=== PATIENT | female | born 1960 | race Caucasian/White ===

== ENCOUNTER 2018-07-08 22:29 | Emergency (ER) | payer OTHER ==
--- NOTE | 2018-07-08 22:41 | PDOC ---
Attending Attestation - HPI HPI: 07/08/18 23:59 The patient is a 57 year old female, with a significant past medical history of advanced ovarian cancer, abdominal surgery November 2017, s/p (last chemo 04/11/18 ) and is now taking pill medication (doesn't know the name) 2 times a day, who presents to the emergency department with onset pleuritic chest pain since 7 :00pm tonight accompanied with dry cough and white flem. The patient notes she was at home with her daughter and had this pulling sensation in the middle of her chest that is aggravated with inspiration. Patient states she feels better now but can still feel the pulling sensation. The patient denies shortness of breath, headache or dizziness. The patient denies fever, chills, nausea, vomit, diarrhea or constipation. The patient denies dysuria, frequency, urgency and hematuria. Allergies: NKDA Past surgical history: abdominal surgery November 2017 Social history: None reported PCP: NOT ON STAFF - Physicial Exam PE: 07/08/18 23:59 GENERAL: Awake, alert, and fully oriented, in no acute distress HEAD: No signs of trauma EYES: PERRLA, EOMI, sclera anicteric, conjunctiva clear ENT: Auricles normal inspection, hearing grossly normal, nares patent, oropharynx clear without exudates. Moist mucosa NECK: Normal ROM, supple, no lymphadenopathy, JVD, or masses LUNGS: Breath sounds equal, clear to auscultation bilaterally. No wheezes, and no crackles HEART: Regular rate and rhythm, normal S1 and S2, no murmurs, rubs or gallops ABDOMEN:(+) surgical incision on abdomen. Soft, nontender, normoactive bowel sounds. No guarding, no rebound. No masses EXTREMITIES: Normal range of motion, no edema. No clubbing or cyanosis. No cords, erythema, or tenderness NEUROLOGICAL: Cranial nerves II through XII grossly intact. Normal speech, normal gait SKIN: Warm, Dry, normal turgor, no rashes or lesions noted. <Kim Malloy - Last Filed: 07/08/18 23:59> - Resident Resident Name: Kassi Land - ED Attending Attestation I have performed the following: I have examined & evaluated the patient, The case was reviewed & discussed with the resident, I agree w/resident's findings & plan - Medical Decision Making 07/09/18 00:18 Pt has normal HR and breathing easily; speaking in full sentences. No peripheral edema or ext swelling. Pt has normal CXR; awaiting CT chest to r/o PE. 07/09/18 01:13 D-dimer is 2009; she will be sent for a CTA chest. 07/09/18 04:07 Patient Name: RUBIN MOREJON THIS IS A PRELIMINARY REPORT FROM [facility] DATE OF SERVICE: 2018-07-09 03:00:22 IMAGES: 415 EXAM: CTA CHEST No pulmonary embolism. No aortic dissection or aneurysm. No pneumonia or pleural effusions. Right chest infusion port, tip in upper right atrium. Portion of liver dome probably projecting slightly through small right hemidiaphragm eventration. Small possible hepatic cyst. Trace perihepatic ascites. 07/09/18 04:30 Pt will go [facility] and follow with docs. She was reassured and she is feeling better. <Cora Jackman - Last Filed: 07/09/18 04:30> Attestations - Attestations 07/09/18 00:00 Documentation prepared by Kim Malloy, acting as medical coder for Cora Jackman MD <Kim Malloy - Last Filed: 07/08/18 23:59>
[2018-07-08 23:09] LABS: BASO % 0.6 % (0-2.0); EOS % 5.5 % (0-4.5); HEMATOCRIT 33.7 % (32.4-45.2); HEMOGLOBIN 11.7 GM/dL (10.7-15.3); LYMPH % 24.3 % (8-40); MCH 28.7 pg (25.7-33.7); MCHC 34.6 g/dl (32.0-36.0); MEAN CELL VOLUME 82.8 fl (80-96); MEAN PLT VOLUME 8.6 fl (7.5-11.1); MONO % 7.4 % (3.8-10.2); NEUT % 62.2 % (42.8-82.8); PLATELET COUNT 215 K/MM3 (134-434); RBC 4.08 M/mm3 (3.60-5.2); RDW 14.3 % (11.6-15.6); WHITE BLOOD COUNT 5.3 K/mm3 (4.0-10.0)
--- NOTE | 2018-07-08 23:17 | PDOC ---
History of Present Illness - General Chief Complaint: Chest Pain Stated Complaint: CHEST PAIN Time Seen by Provider: 07/08/18 22:35 History Source: Patient Exam Limitations: No Limitations - History of Present Illness Initial Comments: 07/08/18 23:13 Pt is a 57yo F with PMH of Advanced Ovarian Ca s/p abdominal surgery November 2017, s/p chemo (last session 04/11/2018) is now taking medications BID x1 week so far presenting to ED with sudden onset chest pain that happened around 4 hours ago. Pt states she was at home and had this pulling type of pain in the middle of her chest worsened by inspiration. She worried and came to the emergency room. Pt states that she feels better now but still has the pulling sensation. Endorses dry cough. She denies SOB, hemoptysis, palpitations, swelling/pain in legs, abdominal pain, n/v/d, fevers, chills, lightheadedness. PMD: none Onc: Rene PMH: see hpi PSH: see hpi Meds: see med rec Allergies: nkda Social: denies Past History - Past Medical History Allergies/Adverse Reactions: Allergies Allergy/AdvReac Type Severity Reaction Status Date / Time No Known Allergies Allergy Verified 07/09/18 03:47 Home Medications: Ambulatory Orders No Home Medications 0 dose .ROUTE UTDICT 06/07/12 - Suicide/Smoking/Psychosocial Hx Smoking Status: Yes Smoking History: Current some day smoker Number of Cigarettes Smoked Daily: 2 Review of Systems - Review of Systems Constitutional: No: Chills, Fever, Night Sweats HEENTM: No: Symptoms Reported Respiratory: No: Cough, Shortness of Breath, Hemoptysis Cardiac (ROS): Yes: Chest Pain. No: Lightheadedness, Palpitations, Syncope ABD/GI: No: Symptoms Reported : No: Symptoms Reported Musculoskeletal: No: Symptoms Reported Integumentary: No: Symptoms Reported Neurological: No: Symptoms reported *Physical Exam - Physical Exam General Appearance: Yes: Nourished, Appropriately Dressed. No: Apparent Distress HEENT: positive: EOMI, JOSEPHINE Neck: positive: Trachea midline, Supple. negative: Lymphadenopathy (R), Lymphadenopathy (L) Respiratory/Chest: positive: Lungs Clear, Normal Breath Sounds. negative: Crackles, Rales, Rhonchi, Stridor, Wheezing Cardiovascular: positive: Regular Rhythm, Regular Rate, S1, S2. negative: Edema , JVD, Murmur Vascular Pulses: Carotid (R): 2+, Carotid (L): 2+, Dorsalis-Pedis (R): 2+, Doralis-Pedis (L): 2+ Gastrointestinal/Abdominal: positive: Normal Bowel Sounds, Soft, Other (healed surgical incision). negative: Rebound, Tenderness, Mass Musculoskeletal: negative: CVA Tenderness Extremity: positive: Normal Capillary Refill, Pelvis Stable. negative: Swelling , Calf Tenderness Integumentary: positive: Normal Color, Dry, Warm Neurologic: positive: brick layer II-XII NML intact, Fully Oriented, Alert, Normal Mood/ Affect, Normal Response, Motor Strength 10/01 ED Treatment Course - LABORATORY CBC & Chemistry Diagram: 07/08/18 23:00 07/08/18 23:00 - ADDITIONAL ORDERS Additional order review: 07/08/18 23:00 RBC 4.08 MCV 82.8 MCHC 34.6 RDW 14.3 MPV 8.6 Neutrophils % 62.2 Lymphocytes % 24.3 Monocytes % 7.4 Eosinophils % 5.5 H Basophils % 0.6 - RADIOLOGY Radiology Studies Ordered: Category Date Time Status CHEST CTA [CT] Stat CT Scan 07/08/18 23:03 Ordered CHEST PA & LAT [RAD] Stat Radiology 07/08/18 22:36 Ordered Medical Decision Making - Medical Decision Making 07/08/18 23:16 Pt is a 57yo F with PMH of Advanced Ovarian Ca s/p abdominal surgery November 2017, s/p chemo (last session 04/11/2018) is now taking medications BID x1 week so far presenting to ED with sudden onset chest pain that happened around 4 hours ago. Pt states she was at home and had this pulling type of pain in the middle of her chest worsened by inspiration. She worried and came to the emergency room. Pt states that she feels better now but still has the pulling sensation. Endorses dry cough. She denies SOB, hemoptysis, palpitations, swelling/pain in legs, abdominal pain, n/v/d, fevers, chills, lightheadedness. Vitals: wnl, saturating well on RA. Not tachycardic PE: benign Ddx includes but not limited to acs, pe, ptx, pna, carditis considering PE although Wells score 1-4. pain is pleuritic. -chest pain workup, cxr, ekg. -d-dimer sent -pt in pain. Given IV Tylenol Labs wnl. D-dimer 2000. Will do CTA. 07/09/18 04:21 CTA negative for PE. PT is hemodynamically stable, not having NM or PE or PNA. Has follow up, Will dc home. given return precautions. Will give 625mg Tylenol PO. *DC/Admit/Observation/Transfer Diagnosis at time of Disposition: Chest pain Qualifiers: Chest pain type: unspecified Qualified Code(s): R07.9 - Chest pain, unspecified - Discharge Dispostion Disposition: HOME Condition at time of disposition: Improved Decision to Admit order: No - Referrals Referrals: ON STAFF,NOT [Primary Care Provider] - - Patient Instructions Printed Discharge Instructions: DI for Atypical Chest Pain Additional Instructions: You were seen in the emergency room for chest pain. All the blood work was normal and the CT of the chest was normal. You do not have a clot in your lungs. Please keep your appointment with your doctor. If you need a primary care doctor , you can use the pamphlet provided to you. Please try to establish a primary care doctor. You can take Tylenol or ibuprofen for the pain as needed. Come back to the emergency room if pain gets worse, you have difficulty breathing, you cough up blood or if any new concerning symptom develops. Thank you - Post Discharge Activity
[2018-07-08 23:22] LABS: INR 1.03 (0.83-1.09); PROTHROMBIN TIME (PATIENT) 12.1 SEC (9.7-13.0)
[2018-07-09 00:11] LABS: ALBUMIN 3.3 g/dl (3.4-5.0); ALK PHOS 97 U/L (45-117); ANION GAP 8 MMOL/L (8-16); BILIRUBIN,TOTAL 0.2 mg/dL (0.2-1); BLOOD UREA NITROGEN 21 mg/dL (7-18); CALCIUM 8.2 mg/dL (8.5-10.1); CHLORIDE 104 mmol/L (98-107); CO2 26 mmol/L (21-32); CREATININE 1.1 mg/dL (0.55-1.3); GLUCOSE,RANDOM 134 mg/dL (74-106); MAGNESIUM 1.8 mg/dL (1.8-2.4); SGOT/AST 15 U/L (15-37); SGPT/ALT 19 U/L (13-61); SODIUM 138 mmol/L (136-145)
[2018-07-09] MEDS ORDERED: SODIUM CHLORIDE 1,000 ML IV STA (01:21)
[2018-07-09] MEDS ORDERED: ACETAMINOPHEN INJECTION 100 ML IVPB ONE (01:50)
[2018-07-09] MEDS ORDERED: ACETAMINOPHEN 1000 MG/100 ML VIAL (NON FORMULARY) IVPB ONE (01:50)
[2018-07-09 03:48] VITALS: BMI 32.3
[2018-07-09] MEDS ORDERED: ACETAMINOPHEN 325 MG TABLET (FP) ONE (04:20)
[2018-07-09] MEDS ORDERED: ACETAMINOPHEN 325 MG TABLET (FP) PO ONE (04:20)
[2018-07-09 04:26] VITALS: BP 136/78; PULSE 88; TEMP 98.6
--- NOTE | 2018-07-09 09:27 | EKG ---
Test Reason : Blood Pressure : / mmHG Vent. Rate : 065 BPM Atrial Rate : 065 BPM P-R Int : 164 ms QRS Dur : 074 ms QT Int : 404 ms P-R-T Axes : 069 054 058 degrees QTc Int : 420 ms NORMAL SINUS RHYTHM POSSIBLE LEFT ATRIAL ENLARGEMENT BORDERLINE ECG NO PREVIOUS ECGS AVAILABLE Confirmed by Giovani Joseph MD ([id number]) on 07/09/2018 9:27:14 AM Referred By: Confirmed By:Giovani Joseph MD
== END 2018-07-09 04:25 | disposition home or self-care (01) ==
LOC: JER 22:29
PROC: 3E0337Z Introduction of Electrolytic and Water Balance Substance into Peripheral Vein, Percutaneous Approach (ICD-10-PCS; principal; 2018-07-08)
PROC: 3E033NZ Introduction of Analgesics, Hypnotics, Sedatives into Peripheral Vein, Percutaneous Approach (ICD-10-PCS; 2018-07-08)
DX: R07.9 Chest pain, unspecified (principal); Z85.43 Personal history of malignant neoplasm of ovary
CPT/HCPCS: 36415; 71046-TC-FY; 71275-TC; 80053; 82550; 83735; 84484; 85025; 85379; 85610; 93005; 93010; 96361; 96374; 99283-25; J0131; J7030

== ENCOUNTER 2018-07-18 21:43 | Emergency (ER) | payer OTHER ==
[2018-07-18 21:55] VITALS: TEMP 98.4; BMI 30.2
--- NOTE | 2018-07-18 21:57 | PDOC ---
History of Present Illness - General Chief Complaint: Blood Pressure Problem Stated Complaint: HYPERTENSION Time Seen by Provider: 07/18/18 21:56 History Source: Patient - History of Present Illness Initial Comments: 07/18/18 22:08 The patient is a 57 year old female with a PMH of Ovarian Ca (s/p hysterectomy, currently on infusion chemo - last appointment 07/01/18) presents with elevated BP readings at home SBP 160's B/L. States she came home from work, ate some [place] food and then started to feel a little bit "foggy" (no headache, no blurry vision) so she measured her BP and became concerned with the high readings prompting her visit to the ED. NKDA Surgical: hysterectomy Social: denies toxic habits PMD: None Oncologist: Dr. Riddle, [facility] As per EMR, patient last evaluated in our ED earlier this month for chest pain at which time CTA was negative for PE. Past History - Past Medical History Allergies/Adverse Reactions: Allergies Allergy/AdvReac Type Severity Reaction Status Date / Time No Known Allergies Allergy Verified 07/09/18 03:47 Home Medications: Ambulatory Orders Lenvatinib Mesylate [Lenvima] 40 mg PO DAILY 07/18/18 Hydrochlorothiazide 25 mg PO DAILY #7 tablet 07/19/18 COPD: No - Suicide/Smoking/Psychosocial Hx Smoking Status: Yes Smoking History: Unknown if ever smoked Have you smoked in the past 12 months: No Number of Cigarettes Smoked Daily: 2 Hx Alcohol Use: No Drug/Substance Use Hx: No Review of Systems - Review of Systems Constitutional: No: Chills, Fever HEENTM: No: Recent change in vision Respiratory: No: Cough, Shortness of Breath Cardiac (ROS): No: Chest Pain, Lightheadedness, Palpitations, Syncope ABD/GI: No: Constipated, Diarrhea, Nausea, Vomiting *Physical Exam - Vital Signs Last Vital Signs Temp Pulse Resp BP Pulse Ox 98.4 F 84 18 173/115 H 97 07/18/18 21:50 07/18/18 21:50 07/18/18 21:50 07/18/18 21:50 07/18/18 21:50 - Physical Exam General Appearance: Yes: Nourished, Appropriately Dressed HEENT: positive: Normal Voice, Hearing Grossly Normal Neck: positive: Trachea midline, Supple Respiratory/Chest: positive: Lungs Clear, Normal Breath Sounds Cardiovascular: positive: S1, S2. negative: Edema, JVD, Murmur Vascular Pulses: Dorsalis-Pedis (R): 2+, Doralis-Pedis (L): 2+ Gastrointestinal/Abdominal: positive: Normal Bowel Sounds, Soft Extremity: positive: Normal Capillary Refill, Normal Inspection Integumentary: positive: Normal Color, Dry, Warm Moderate Sedation - Procedure Monitoring Vital Signs: Procedure Monitoring Vital Signs Temperature 98.4 F 07/18/18 21:50 Pulse Rate 84 07/18/18 21:50 Respiratory Rate 18 07/18/18 21:50 Blood Pressure 173/115 H 07/18/18 21:50 O2 Sat by Pulse Oximetry (%) 97 07/18/18 21:50 ED Treatment Course - LABORATORY CBC & Chemistry Diagram: 07/19/18 00:05 07/19/18 00:05 Medical Decision Making - Medical Decision Making 07/18/18 22:13 57 year old female with elevated BP and "fogginess." H/o elevated BP and salt loading this evening. Repeat BP @ bedside, 171/99. Given patient's h/o intermittent elevated BP and hypercoaguability 2/2 to malignancy will evaluate for CVA/TIA. 07/19/18 01:49 CBC, CMP unremarkable Repeat BP 175/92 07/19/18 03:00 Repeat BP 167/101 07/19/18 04:[address] negative Repeat BP 154/80 Will discharge patient home with referral to establish Primary Care, return precautions. Clinical Impression: Hypertension 2/2 to salt loading I discussed the physical exam findings, ancillary test results and final diagnoses with the patient. I answered all of the patient's questions. The patient was satisfied with the care received and felt comfortable with the discharge plan and treatment plan. The patient will return to the Emergency Department with any new, persistent or worsening symptoms. *DC/Admit/Observation/Transfer Diagnosis at time of Disposition: High blood pressure - Discharge Dispostion Disposition: HOME Condition at time of disposition: Good Decision to Admit order: No - Prescriptions Prescriptions: Hydrochlorothiazide 25 mg PO DAILY #7 tablet - Referrals Referrals: Deon Nicholson MD [Staff Physician] - - Patient Instructions Printed Discharge Instructions: DI for High Blood Pressure Additional Instructions: You were evaluated today for your high blood pressure and headache. All of your labs and a cat scan of your head showed no concerning findings. At this time you are safe for discharge home. We have sent a 1 week supply of a blood pressure medication to your pharmacy. Please take as prescribed. We have scheduled a primary care appointment for you on Tuesday at 4 p.m. with the [facility] ([address] [place] [address]). Your care is not complete until you are evaluated by a primary care physician. - Post Discharge Activity
--- NOTE | 2018-07-18 22:00 | PDOC ---
Attending Attestation - HPI HPI: 07/18/18 22:21 The patient is a 57 year old female with a PMH of ovarian cancer (s/p hysterectomy; on infusion therapy; last infusion was on 07/01/18) presents to the ER after elevated blood pressure readings at home today. Patient states she had [place] food at 5:30PM today and subsequently felt foggy. Patient notes she measured her blood pressure after eating the chines food and it was in the 160s at that time. Patient denies any associated headache, vision changes, shortness of breath, or chest pain. Patient reports similar fogginess whenever she eats other salty foods. Patients blood pressure in the ER is 173/ 115. She is not currently on any blood pressure meds. The patient denies chest pain, shortness of breath, headache and dizziness. Denies fever, chills, nausea, vomit, diarrhea and constipation. Denies dysuria, frequency, urgency and hematuria. Allergies: NKA Past surgical history: hysterectomy Social history: No reported alcohol, drug or cigarette use. - Physicial Exam PE: 07/18/18 22:21 Agree with resident's exam. <Mireille Dominique - Last Filed: 07/18/18 22:23> - Resident Resident Name: Marcy Carmen - ED Attending Attestation I have performed the following: I have examined & evaluated the patient, The case was reviewed & discussed with the resident, I agree w/resident's findings & plan - Medical Decision Making 07/19/18 01:43 57-year-old female with elevated blood pressure after eating [place] food Patient admits that she is extremely salt sensitive and that food made her feel unwell after several bites She denies symptoms at this time Patient will be discharged home to follow up with her regular physician in regards to possible initiation of antihypertensives <Yaa Salcido - Last Filed: 07/19/18 01:43>
[2018-07-19 00:20] LABS: BASO % 0.3 % (0-2.0); EOS % 4.9 % (0-4.5); HEMATOCRIT 36.4 % (32.4-45.2); HEMOGLOBIN 12.5 GM/dL (10.7-15.3); LYMPH % 21.1 % (8-40); MCH 28.4 pg (25.7-33.7); MCHC 34.4 g/dl (32.0-36.0); MEAN CELL VOLUME 82.4 fl (80-96); MONO % 7.1 % (3.8-10.2); NEUT % 66.6 % (42.8-82.8); PLATELET COUNT 237 K/MM3 (134-434); RBC 4.42 M/mm3 (3.60-5.2); RDW 14.7 % (11.6-15.6); WHITE BLOOD COUNT 6.6 K/mm3 (4.0-10.0)
[2018-07-19 00:52] LABS: ALBUMIN 3.5 g/dl (3.4-5.0); ALK PHOS 104 U/L (45-117); ANION GAP 7 MMOL/L (8-16); BILIRUBIN,TOTAL 0.2 mg/dL (0.2-1); BLOOD UREA NITROGEN 13 mg/dL (7-18); CALCIUM 8.7 mg/dL (8.5-10.1); CHLORIDE 99 mmol/L (98-107); CO2 31 mmol/L (21-32); CREATININE 0.8 mg/dL (0.55-1.3); GLUCOSE,RANDOM 98 mg/dL (74-106); POTASSIUM 4.3 mmol/L (3.5-5.1); SGOT/AST 17 U/L (15-37); SGPT/ALT 24 U/L (13-61); SODIUM 137 mmol/L (136-145); TOT PROT 7.6 g/dl (6.4-8.2)
[2018-07-19] MEDS ORDERED: HYDROCHLOROTHIAZIDE 25 MG TABLET (FP) PO ONE (01:52)
[2018-07-19] MEDS ORDERED: ACETAMINOPHEN 500 MG TABLET (FP) PO ONE (01:54)
[2018-07-19] MEDS ORDERED: ACETAMINOPHEN 325 MG TABLET (FP) ONE (02:09)
[2018-07-19] MEDS ORDERED: HYDROCHLOROTHIAZIDE 25 MG TABLET (FP) ONE (02:09)
[2018-07-19 04:21] VITALS: BP 154/80; PULSE 77
--- NOTE | 2018-07-20 02:37 | EKG ---
Test Reason : Blood Pressure : / mmHG Vent. Rate : 072 BPM Atrial Rate : 072 BPM P-R Int : 162 ms QRS Dur : 076 ms QT Int : 396 ms P-R-T Axes : 056 046 042 degrees QTc Int : 433 ms NORMAL SINUS RHYTHM POSSIBLE LEFT ATRIAL ENLARGEMENT BORDERLINE ECG WHEN COMPARED WITH ECG OF 08-JUL-2018 23:59, NO SIGNIFICANT CHANGE WAS FOUND Confirmed by TOM HUANG MD ([id number]) on 07/20/2018 2:37:17 AM Referred By: Confirmed By:TOM HUANG MD
== END 2018-07-19 04:38 | disposition home or self-care (01) ==
LOC: JER 21:43
DX: I10 Essential (primary) hypertension (principal); Z85.43 Personal history of malignant neoplasm of ovary
CPT/HCPCS: 36415; 70450-TC; 80053; 82550; 84484; 85025; 93005; 93010; 99283-25

== ENCOUNTER 2018-07-26 19:44 | Emergency (ER) | payer OTHER ==
[2018-07-26 20:09] VITALS: BP 169/103; PULSE 83; TEMP 98.2; BMI 32.1
--- NOTE | 2018-07-26 20:09 | PDOC ---
Rapid Medical Evaluation Time Seen by Provider: 07/26/18 20:03 Medical Evaluation: Allergies Allergy/AdvReac Type Severity Reaction Status Date / Time No Known Allergies Allergy Verified 07/09/18 03:47 07/26/18 20:03 I have performed a brief in-person evaluation of this patient. The patient presents with a chief complaint of: Abd pain with constipation x 2 days. Had 1 e/o n/v today. No f/c. H/o ovarian ca s/p hysterectomy, on infusion therapy, last time 07/01/18 Pertinent physical exam findings:BP 169/103 (denies h/o HTN). Of note, was told on visit 07/18/18 that she should f/u with her PMD for possible initiation of BP meds as BP elevated on last visit as well I have ordered the following:labs The patient will proceed to the ED for further evaluation. Discharge Disposition - Diagnosis Abdominal pain Qualifiers: Abdominal location: unspecified location Qualified Code(s): R10.9 - Unspecified abdominal pain - Referrals - Patient Instructions - Post Discharge Activity
[2018-07-26 20:57] LABS: BASO % 0.4 % (0-2.0); HEMATOCRIT 42.6 % (32.4-45.2); HEMOGLOBIN 14.6 GM/dL (10.7-15.3); LYMPH % 22.3 % (8-40); MCH 27.8 pg (25.7-33.7); MCHC 34.2 g/dl (32.0-36.0); MEAN CELL VOLUME 81.4 fl (80-96); MEAN PLT VOLUME 8.1 fl (7.5-11.1); MONO % 8.2 % (3.8-10.2); NEUT % 65.1 % (42.8-82.8); PLATELET COUNT 285 K/MM3 (134-434); RBC 5.24 M/mm3 (3.60-5.2); RDW 14.8 % (11.6-15.6); WHITE BLOOD COUNT 7.9 K/mm3 (4.0-10.0)
[2018-07-26 21:08] LABS: URINE APPEARANCE CLEAR; URINE BILIRUBIN NEGATIVE (<2.0 mg/dL); URINE COLOR YELLOW; URINE GLUCOSE (UA) NEGATIVE (NEGATIVE); URINE KETONE NEGATIVE (NEGATIVE); URINE LEUK ESTERASE 1+ (NEGATIVE); URINE NITRITE NEGATIVE (NEGATIVE); URINE PROTEIN 2+ (NEGATIVE); URINE UROBILINOGEN NEGATIVE mg/dL (0.2-1.0)
[2018-07-26 21:14] LABS: EPI CELLS RARE /HPF (FEW); URINE MUCUS RARE
[2018-07-26 21:53] LABS: ALBUMIN 4.1 g/dl (3.4-5.0); ALK PHOS 128 U/L (45-117); ANION GAP 9 MMOL/L (8-16); BILIRUBIN,TOTAL 0.4 mg/dL (0.2-1); BLOOD UREA NITROGEN 13 mg/dL (7-18); CALCIUM 9.4 mg/dL (8.5-10.1); CHLORIDE 95 mmol/L (98-107); CO2 28 mmol/L (21-32); CREATININE 0.8 mg/dL (0.55-1.3); GLUCOSE,RANDOM 105 mg/dL (74-106); POTASSIUM 4.3 mmol/L (3.5-5.1); SGOT/AST 21 U/L (15-37); SGPT/ALT 22 U/L (13-61); SODIUM 131 mmol/L (136-145); TOT PROT 8.6 g/dl (6.4-8.2)
--- NOTE | 2018-07-26 22:55 | PDOC ---
*Physical Exam - Vital Signs Last Vital Signs Temp Pulse Resp BP Pulse Ox 98.2 F 83 20 169/103 H 96 07/26/18 20:04 07/26/18 20:04 07/26/18 20:04 07/26/18 20:04 07/26/18 20:04 ED Treatment Course - LABORATORY CBC & Chemistry Diagram: 07/26/18 20:33 07/26/18 20:33 - ADDITIONAL ORDERS Additional order review: Laboratory Results 07/26/18 07/26/18 20:35 20:33 Sodium 131 L Potassium 4.3 Chloride 95 L Carbon Dioxide 28 Anion Gap 9 BUN 13 Creatinine 0.8 Creat Clearance w eGFR > 60 Random Glucose 105 Calcium 9.4 Total Bilirubin 0.4 AST 21 ALT 22 Alkaline Phosphatase 128 H Total Protein 8.6 H Albumin 4.1 Urine Color Yellow Urine Appearance Clear Urine pH 5.0 Ur Specific [place] 1.019 Urine Protein 2+ H Urine Glucose (UA) Negative Urine Ketones Negative Urine Blood 2+ H Urine Nitrite Negative Urine Bilirubin Negative Urine Urobilinogen Negative Ur Leukocyte Esterase 1+ H Urine WBC (Auto) 17 Urine RBC (Auto) 1 Ur Epithelial Cells Rare Urine Mucus Rare 07/26/18 20:33 RBC 5.24 H MCV 81.4 MCHC 34.2 RDW 14.8 MPV 8.1 Neutrophils % 65.1 Lymphocytes % 22.3 Monocytes % 8.2 Eosinophils % 4.0 Basophils % 0.4 Medical Decision Making - Medical Decision Making 07/26/18 22:55 Patient seen by the advanced practice provider under my direct supervision. Ancillary testing reviewed as necessary. I agree with plan as outlined by the advanced practice provider. *DC/Admit/Observation/Transfer Diagnosis at time of Disposition: UTI (urinary tract infection) Qualifiers: Urinary tract infection type: acute cystitis Hematuria presence: without hematuria Qualified Code(s): N30.00 - Acute cystitis without hematuria - Discharge Dispostion Disposition: HOME Condition at time of disposition: Stable - Prescriptions Prescriptions: Cephalexin Monohydrate [Keflex -] 500 mg PO BID #14 capsule - Referrals - Patient Instructions Additional Instructions: Rest, drink lots of fluids: Teas, water, soups Avoid contact with others until fevers and symptoms resolved Lots of handwashing and good hygiene Continue [id number] medications for symptomatic relief Tylenol or Motrin for fever and pain Continue all of antibiotics until completed Followup with private physician in one week for repeat urinalysis/reevaluation Return to emergency department for worsened symptoms, fevers, dehydration - Post Discharge Activity
--- NOTE | 2018-07-26 23:29 | PDOC ---
History of Present Illness - General Chief Complaint: Pain Stated Complaint: HIGH POT Time Seen by Provider: 07/26/18 20:03 History Source: Patient, Old Records Exam Limitations: No Limitations - History of Present Illness Travel History: No Initial Comments: 07/26/18 23:24 HISTORY OF PRESENT ILLNESS: 57-year-old woman past medical history of hypertension-newly diagnosed started on medication, ovarian CA status post hysterectomy and cholecystectomy who presents emergency department for evaluation of abdominal pain for 2 days. Patient reports having intermittent bowel movements but had a formed stool earlier today after using suppositories. Prior to that, her last bowel movement was 2 days ago. Patient reports a decrease in appetite but has not vomited. Patient reports increase in fluid intake since starting on hydrochlorothiazide. Patient denies any dysuria, hematuria, urinary frequency, rectal bleeding or diarrhea. Patient denies any vaginal bleeding or discharge. No recent travel or sick contacts. PAST MEDICAL HISTORY: see HPI SURGICAL HISTORY: see HPI ALLERGIES: No known drug allergies REVIEW OF SYSTEMS General/Constitutional: Denies fever or chills. Denies weakness, weight change. HEENT: Denies change in vision. Denies ear pain or discharge. Denies sore throat. Cardiovascular: Denies chest pain or shortness of breath. Respiratory: Denies cough, wheezing, or hemoptysis. Gastrointestinal: see HPI Genitourinary: Denies dysuria, frequency, or change in urination. Musculoskeletal: Denies joint or muscle swelling or pain. Denies neck or back pain. Skin and breasts: Denies rash or easy bruising. Neurologic: Denies headache, vertigo, loss of consciousness, or loss of sensation. Psychiatric: Denies depression or anxiety. Endocrine: Denies increased thirst. Denies abnormal weight change. Hematologic/Lymphatic: Denies anemia, easy bleeding, or history of blood clots. Allergic/Immunologic: Denies hives or skin allergy. Denies latex allergy. PHYSICAL EXAM General Appearance: Well-appearing, appropriately dressed. No apparent distress , no intoxication. HEENT: EOMI, PERRLA, normal ENT inspection, normal voice, TMs normal, pharynx normal. No conjunctival pallor. No photophobia, scleral icterus. Neck: Supple. Trachea midline. No tenderness, rigidity, carotid bruit, stridor , lymphadenopathy, or thyromegaly. Respiratory/Chest: Lungs CTAB. No shortness of breath, chest tenderness, respiratory distress, accessory muscle use. No crackles, rales, rhonchi, stridor , wheezing, dullness Cardiovascular: RRR. S1, S2. No JVD, murmur, bradycardia, tachycardia. Vascular Pulses: Dorsalis-Pedis (R): 2+, Dorsalis-Pedis (L): 2+ Gastrointestinal/Abdominal: Normal bowel sounds. Abdomen soft, non-distended. No tenderness or rebound tenderness. No organomegaly, pulsatile mass, guarding, hernia, hepatomegaly, splenomegaly. Midline surgical scar present. Lymphatic: No adenopathy, tenderness. Musculoskeletal/Extremities: Normal inspection. FROM of all extremities, normal capillary refill. Pelvis Stable. No CVA tenderness. No tenderness to extremities, pedal edema, swelling, erythema or deformity. Integumentary: Appropriate color, dry, warm. No cyanosis, erythema, jaundice or rash Neurologic: outer diameter grinder tool II-XII intact. Fully oriented, alert. Appropriate mood/affect. Motor strength 5/5. No appreciable EOM palsy, facial droop or sensory deficit. Past History - Past Medical History Allergies/Adverse Reactions: Allergies Allergy/AdvReac Type Severity Reaction Status Date / Time No Known Allergies Allergy Verified 07/09/18 03:47 Home Medications: Ambulatory Orders Lenvatinib Mesylate [Lenvima] 40 mg PO DAILY 07/18/18 Hydrochlorothiazide 25 mg PO DAILY #7 tablet 07/19/18 Cephalexin Monohydrate [Keflex -] 500 mg PO BID #14 capsule 07/27/18 Cancer: Yes (ovarian) COPD: No - Immunization History Td Vaccination: Yes TDAP Vaccination: Yes Immunization Up to Date: Yes - Suicide/Smoking/Psychosocial Hx Smoking Status: Yes Smoking History: Never smoked Have you smoked in the past 12 months: No Number of Cigarettes Smoked Daily: 2 Information on smoking cessation initiated: No Hx Alcohol Use: No Drug/Substance Use Hx: No *Physical Exam - Vital Signs Last Vital Signs Temp Pulse Resp BP Pulse Ox 98.2 F 83 20 169/103 H 96 07/26/18 20:04 07/26/18 20:04 07/26/18 20:04 07/26/18 20:04 07/26/18 20:04 Moderate Sedation - Procedure Monitoring Vital Signs: Procedure Monitoring Vital Signs Temperature 98.2 F 07/26/18 20:04 Pulse Rate 83 07/26/18 20:04 Respiratory Rate 20 07/26/18 20:04 Blood Pressure 169/103 H 07/26/18 20:04 O2 Sat by Pulse Oximetry (%) 96 07/26/18 20:04 ED Treatment Course - LABORATORY CBC & Chemistry Diagram: 07/26/18 20:33 07/26/18 20:33 - ADDITIONAL ORDERS Additional order review: Laboratory Results 07/26/18 07/26/18 20:35 20:33 Sodium 131 L Potassium 4.3 Chloride 95 L Carbon Dioxide 28 Anion Gap 9 BUN 13 Creatinine 0.8 Creat Clearance w eGFR > 60 Random Glucose 105 Calcium 9.4 Total Bilirubin 0.4 AST 21 ALT 22 Alkaline Phosphatase 128 H Total Protein 8.6 H Albumin 4.1 Urine Color Yellow Urine Appearance Clear Urine pH 5.0 Ur Specific [place] 1.019 Urine Protein 2+ H Urine Glucose (UA) Negative Urine Ketones Negative Urine Blood 2+ H Urine Nitrite Negative Urine Bilirubin Negative Urine Urobilinogen Negative Ur Leukocyte Esterase 1+ H Urine WBC (Auto) 17 Urine RBC (Auto) 1 Ur Epithelial Cells Rare Urine Mucus Rare 07/26/18 20:33 RBC 5.24 H MCV 81.4 MCHC 34.2 RDW 14.8 MPV 8.1 Neutrophils % 65.1 Lymphocytes % 22.3 Monocytes % 8.2 Eosinophils % 4.0 Basophils % 0.4 Medical Decision Making - Medical Decision Making 07/26/18 23:29 A/P: 57-year-old woman with abdominal pain for 2 days Laboratory testing reveals hypo-natremia at 131. Patient's urine suggestive of urinary tract infection. Hyponatremia likely from diuretic use and increased water intake Repeat blood pressure. Reassess 07/26/18 23:30 07/27/18 00:35 Repeat blood pressure is 150/90. Repeat abdominal exam remains benign. I will discharge the patient home with prescription for antibiotics. I discussed the physical exam findings, ancillary test results and final diagnoses with the patient. I answered all of the patient's questions. The patient was satisfied with the care received and felt comfortable with the discharge plan and treatment plan. The patient will call their primary care physician within 24 hours to arrange follow-up and will return to the Emergency Department with any new, persistent or worsening symptoms. *DC/Admit/Observation/Transfer Diagnosis at time of Disposition: UTI (urinary tract infection) Qualifiers: Urinary tract infection type: acute cystitis Hematuria presence: without hematuria Qualified Code(s): N30.00 - Acute cystitis without hematuria - Discharge Dispostion Disposition: HOME Condition at time of disposition: Stable Decision to Admit order: No - Prescriptions Prescriptions: Cephalexin Monohydrate [Keflex -] 500 mg PO BID #14 capsule - Referrals - Patient Instructions Additional Instructions: Rest, drink lots of fluids: Teas, water, soups Avoid contact with others until fevers and symptoms resolved Lots of handwashing and good hygiene Continue [id number] medications for symptomatic relief Tylenol or Motrin for fever and pain Continue all of antibiotics until completed Followup with private physician in one week for repeat urinalysis/reevaluation Return to emergency department for worsened symptoms, fevers, dehydration - Post Discharge Activity
== END 2018-07-27 01:11 | disposition home or self-care (01) ==
LOC: JER 19:44
DX: N30.00 Acute cystitis without hematuria (principal); Z85.43 Personal history of malignant neoplasm of ovary; I10 Essential (primary) hypertension
CPT/HCPCS: 36415; 80053; 81003; 81015; 85025; 99281-25

== ENCOUNTER 2019-06-26 09:44 | Inpatient (IN) | payer OTHER ==
--- NOTE | 2019-06-26 10:20 | PDOC ---
History of Present Illness - General Chief Complaint: Weakness Stated Complaint: WEAKNESS/VOMITING Time Seen by Provider: 06/26/19 10:19 History Source: Patient Exam Limitations: No Limitations - History of Present Illness Initial Comments: 06/26/19 10:19 Amparo Garcia is a 58F with PMH metastatic ovarian cancer s/p laparotomy and JUDI /BSO in 2019 c/b 4x hernia on PO and q3week IV chemotherapy presenting with 3 weeks of weakness, nausea, vomiting, poor PO, and daily diarrhea. Patient reports for the last 3 weeks has had daily diarrhea with poor PO intake and N/V every time she tries to eat. Has been taking PO Lenvima daily with Keytruda every 3 weeks, last infusion a few weeks ago. Per patient, this is similar to her first run of chemotherapy that was stopped after 3 months in 2019[address] PMD [address]. Brown Garcia, oncologist is Dr. Tan at [place]. Chemotherapy stopped yesterday, today is first day without daily chemo. Patient denies fever, chills, chest pain, SOB, abdominal pain. Just has nausea and vomiting with PO and diarrhea. Past History - Past Medical History Allergies/Adverse Reactions: Allergies Allergy/AdvReac Type Severity Reaction Status Date / Time No Known Allergies Allergy Verified 07/09/18 03:47 Home Medications: Ambulatory Orders Lenvatinib Mesylate [Lenvima] 40 mg PO DAILY 07/18/18 Hydrochlorothiazide 25 mg PO DAILY #7 tablet 07/19/18 Albuterol Sulfate [Albuterol Sulfate Hfa] 18 gm IH PRN 06/26/19 Amlodipine Besylate 5 mg PO DAILY 06/26/19 Aspirin [Aspirin EC] 81 mg PO DAILY 06/26/19 Levothyroxine [Synthroid -] 125 mcg PO DAILY 06/26/19 Cancer: Yes (ovarian) COPD: No - Immunization History Td Vaccination: Yes TDAP Vaccination: Yes Immunization Up to Date: Yes - Psycho Social/Smoking Cessation Hx Smoking Status: Yes Smoking History: Never smoked Have you smoked in the past 12 months: No Number of Cigarettes Smoked Daily: 2 Hx Alcohol Use: No Drug/Substance Use Hx: No Review of Systems - Review of Systems Able to Perform ROS?: Yes Constitutional: Yes: Unintentional Wgt. Loss (20lbs). No: Fever HEENTM: No: Symptoms Reported Respiratory: Yes: Cough (chronic). No: Shortness of Breath Cardiac (ROS): No: Chest Pain, Irregular Heart Rate, Lightheadedness, Palpitations, Syncope ABD/GI: Yes: Diarrhea, Nausea, Poor Appetite, Poor Fluid Intake. No: Difficulty Swallowing : No: Symptoms Reported Musculoskeletal: No: Symptoms Reported Integumentary: No: Symptoms Reported Neurological: Yes: Dizziness. No: Headache, Numbness, Paresthesia, Unsteady Gait Endocrine: No: Symptoms Reported Hematologic/Lymphatic: No: Symptoms Reported All Other Systems: Reviewed and Negative *Physical Exam - Vital Signs Last Vital Signs Temp Pulse Resp BP Pulse Ox 98.3 F 102 H 16 131/93 100 06/26/19 10:06/26/19 10:06/26/19 10:06/26/19 10:06/26/19 10:01 - Physical Exam General Appearance: Yes: Nourished, Appropriately Dressed. No: Apparent Distress, Disheveled HEENT: positive: EOMI, JOSEPHINE, Normal ENT Inspection, Normal Voice, Symmetrical, Pharynx Normal (dry mucosa), Hearing Grossly Normal. negative: Scleral Icterus (R), Scleral Icterus (L), Pharyngeal Erythema, Tonsillar Exudate, Tonsillar Erythema Neck: positive: Trachea midline, Normal Thyroid, Supple. negative: Tender, Rigid, Lymphadenopathy (R), Lymphadenopathy (L), Tender lateral, Tender midline Respiratory/Chest: positive: Lungs Clear, Normal Breath Sounds. negative: Chest Tender, Respiratory Distress, Accessory Muscle Use, Crackles, Rales, Rhonchi, Stridor, Wheezing, Hyperresonant, Dullness Cardiovascular: positive: Regular Rhythm, Regular Rate Gastrointestinal/Abdominal: positive: Normal Bowel Sounds, Flat, Soft, Other ( well-healed ventral laparotomy scar, no palpable hernias). negative: Tender, Organomegaly, Guarding, Rebound Musculoskeletal: positive: Normal Inspection. negative: CVA Tenderness, Decreased Range of Motion Extremity: positive: Normal Capillary Refill, Normal Inspection, Normal Range of Motion, Pelvis Stable. negative: Tender, Pedal Edema, Swelling, Calf Tenderness Integumentary: positive: Normal Color, Dry, Warm. negative: Diaphoresis Neurologic: positive: senior chemist II-XII NML intact, Fully Oriented, Alert, Normal Mood/ Affect, Normal Response, Motor Strength 5/5 ED Treatment Course - LABORATORY CBC & Chemistry Diagram: 06/26/19 10:35 06/26/19 10:35 Medical Decision Making - Medical Decision Making 06/26/19 13:07 Patient presents to ED with 3 weeks intractable N/V with PO and diarrhea, sent by Dr. Garcia for rehydration and evaluation. Most likely cause of symptoms is side effect of chemo similar to last time. However, will eval for gastroenteritis, pancreatitis, hepatic/GB pathology, stool parasites/CDIFF. - CBC/CMP for lytes/infection - CP/CXR/ECG for heart eval - lipase for pancreatitis eval - Coags for INR - UA/UC for UTI eval - TSH for eval thyroid - stool cultures/CDIFF/O&P - 1L IV NS ECG shows NSR with HR 95, QRS 80, QTc [address] depressions in inferior and lateral leads, new compared to priors CXR no acute pathology. 06/26/19 13:13 Labs notable for: - Na 130, repleting with NS - Cr 0.9, no JENNIFER - lipase 36, no pancreatitis - TSH 0.12, low concerning for hyperthyroidism - trop <0.02 06/26/19 14:43 Attending spoke to admitting team, good for admission under Dr. Chao to Med Surg. Given 10mL Robotussin for sore throat. Discharge - Discharge Information Problems reviewed: Yes Clinical Impression/Diagnosis: Ovarian cancer Qualifiers: Laterality: bilateral Qualified Code(s): C56.1 - Malignant neoplasm of right ovary Nausea & vomiting Qualifiers: Vomiting type: unspecified Vomiting Intractability: non-intractable Qualified Code(s): R11.2 - Nausea with vomiting, unspecified Diarrhea Qualifiers: Diarrhea type: unspecified type Qualified Code(s): R19.7 - Diarrhea, unspecified Condition: Stable - Admission Yes - Follow up/Referral - Patient Discharge Instructions - Post Discharge Activity
[2019-06-26] MEDS ORDERED: SODIUM CHLORIDE 1,000 ML IV STA (11:12)
[2019-06-26 12:06] LABS: VENOUS PC02 46.7 mmHg (38-52); VENOUS PH 7.43 (7.31-7.41)
[2019-06-26 12:08] LABS: BASO % 0.3 % (0-2.0); EOS % 1.9 % (0-4.5); HEMOGLOBIN 16.1 GM/dL (10.7-15.3); LYMPH % 24.9 % (8-40); MCH 29.4 pg (25.7-33.7); MCHC 33.6 g/dl (32.0-36.0); MEAN CELL VOLUME 87.4 fl (80-96); MEAN PLT VOLUME 10.5 fl (7.5-11.1); MONO % 12.8 % (3.8-10.2); NEUT % 60.1 % (42.8-82.8); PLATELET COUNT 182 K/MM3 (134-434); RDW 15.4 % (11.6-15.6); VENOUS PO2 < 49 mmHg (28-48); WHITE BLOOD COUNT 4.5 K/mm3 (4.0-10.0)
[2019-06-26 12:22] LABS: INR 1.11 (0.83-1.09); PROTHROMBIN TIME (PATIENT) 13.1 SEC (9.7-13.0)
[2019-06-26 12:25] LABS: ACTIVATED PTT 30.6 SECONDS (25.2-36.5)
--- NOTE | 2019-06-26 12:32 | PDOC ---
Attending Attestation - Resident Resident Name: Tien Funez - ED Attending Attestation I have performed the following: I have examined & evaluated the patient, The case was reviewed & discussed with the resident, I agree w/resident's findings & plan - HPI HPI: 06/26/19 12:28 58-year-old female with history of ovarian CA status post JUDI/BSO in October 2018 followed by 3 months of IV and oral chemotherapy stopped at that time reportedly secondary to GI side effects of intractable diarrhea, then restarted about 4 months ago and presents now with 2 weeks of decreased oral intake, vomiting, diarrhea. No abdominal pain, no fevers or chills, has seen her oncologist and her chemotherapy was actually stopped as of yesterday. Sent in by PCP for hydration - Physicial Exam PE: 06/26/19 12:29 Afebrile, slight tachycardia Alert seated comfortably in stretcher speaking full sentences No jaundice or pallor, dry mucosa Heart is regular, lungs are clear Abdomen is soft/nondistended. Palpable hernias following laparotomy, no incarceration or obstruction. Healed incisional scar. No edema or calf tenderness - Medical Decision Making 06/26/19 12:30 58-year-old female with history of ovarian CA currently on chemotherapy presents with painless vomiting and diarrhea likely secondary to chemotherapy side effect, nontoxic-appearing with benign abdominal exam. Labs, urinalysis IV fluid rehydration Chest x-ray EKG with new inf/lat EKG changes - pt has no cardiopulmonary complaints at all. Admission Heart Score/ECG Review #1 ECG reviewed & interpreted by me at: 10:59 General ECG Interpretation: Sinus Rhythm, Normal Rate (95), Normal Intervals ( qtc 449), No acute ischemic changes (inf/lat ST depression with TWI) Compared to previous ECG there are: Changes noted (c/w 07/18/18, ST depressions and TWI in inf/lat leads is new)
[2019-06-26 12:37] LABS: ALBUMIN 3.8 g/dl (3.4-5.0); ALK PHOS 77 U/L (45-117); ANION GAP 8 MMOL/L (8-16); BILIRUBIN,TOTAL 0.7 mg/dL (0.2-1); CALCIUM 9.1 mg/dL (8.5-10.1); CHLORIDE 92 mmol/L (98-107); CO2 29 mmol/L (21-32); CREATININE 0.9 mg/dL (0.55-1.3); GLUCOSE,RANDOM 90 mg/dL (74-106); LIPASE 36 U/L (73-393); MAGNESIUM 1.8 mg/dL (1.8-2.4); PHOSPHOROUS 4.2 mg/dL (2.5-4.9); SGOT/AST 36 U/L (15-37); SGPT/ALT 38 U/L (13-61); SODIUM 130 mmol/L (136-145); TOT PROT 7.9 g/dl (6.4-8.2)
[2019-06-26 13:13] LABS: EPI CELLS 12.2 /HPF (0-5/HPF); HYALINE CASTS 93 /lpf (0-8); URINE APPEARANCE CLOUDY; URINE BACTERIA 466.5 /hpf (NEGATIVE); URINE BILIRUBIN 2+ (NEGATIVE); URINE COLOR DK YELLOW; URINE GLUCOSE (UA) NEGATIVE (NEGATIVE); URINE KETONE TRACE (NEGATIVE); URINE LEUK ESTERASE TRACE (NEGATIVE); URINE NITRITE NEGATIVE (NEGATIVE); URINE PROTEIN 2+ (NEGATIVE); URINE RBC 2 /hpf (0-4); URINE WBC 44 /hpf (0-5)
[2019-06-26] MEDS ORDERED: CEFTRIAXONE 1,000 MG in DEXTROSE 5%-WATER - 50 ML IVPB ONE (13:58)
[2019-06-26] MEDS ORDERED: CEFTRIAXONE 1 GM/50 ML BAG ONE (14:04)
[2019-06-26] MEDS ORDERED: guaiFENesin/D-M SUGAR-FREE/ACLHOL-FREE 118 ML BOTTLE PO ONE (14:22)
[2019-06-26] MEDS ORDERED: guaiFENesin 200 MG/10 ML 10 ML UNIT-DOSE CUPS ONE (14:37)
[2019-06-26] MEDS ORDERED: guaiFENesin 200 MG/10 ML 10 ML UNIT-DOSE CUPS PO ONE (14:42)
[2019-06-26] MEDS ORDERED: SODIUM CHLORIDE 1,000 ML IV SCH (15:15)
[2019-06-26] MEDS ORDERED: SODIUM CHLORIDE FOR INHALATION 3 ML VIAL.NEB IH PRN (15:20)
--- NOTE | 2019-06-26 15:48 | HP ---
CHIEF COMPLAINT: nausea/vomiting PCP: Dr. Karlo Licona HISTORY OF PRESENT ILLNESS: Patient is a 58 yo F with a PMHx of met ovarian ca (s/p laparatomy and JUDI/BSO) , now on chemo daily with Lenvima, Keytruda weekly, presenting with 3 weeks of weakness, nausea, vomiting, poor PO, and daily diarrhea. Patient says she started developing nausea/vomiting and diarrhea 2-3 weeks ago. She had a similar episode in the past and developed chemo-induced colitis. She described her diarrhea as watery, non bloody but has not had a BM since this morning. She called her PCP yesterday and was told to go to the ER due to dehydration concerns from her symptoms. She also called her heme/onc yesterday who told her to stop taking her chemo. Oncologist is Dr. Tan at [place]. Patient reports developing a sore throat yesterday with weakness, muscle aches, nasal congestion, and cough with phlegm production. She complains of not being able to tolerate PO because of a sore throat that also started yesterday. She has an appetite but unable to eat due to the sore throat. When asked she said she has a hard time swallowing, and pain when swallowing. She said she just completed a course of amoxicillin. She also says both her grandchildren have been sick this week. She denies fevers, chills, chest pain, shortness of breath, abdominal pain, dizziness, sob. ER course was notable for: (1) 1 L bolus (2) ceftriaxone x 1 for abnormal u/a (3) EKG changes with ST depressions in inferior and lateral leads, new compared to priors Recent Travel: denies PAST MEDICAL HISTORY: her HPI Social History: Smoking: former quit 6 months ago Alcohol: quit 6 months ago Allergies No Known Allergies Allergy (Verified 07/09/18 03:47) HOME MEDICATIONS: Home Medications Medication Instructions Recorded Lenvatinib Mesylate [Lenvima] 40 mg PO DAILY 07/18/18 Hydrochlorothiazide 25 mg PO DAILY #7 tablet 07/19/18 Albuterol Sulfate [Albuterol 18 gm IH PRN 06/26/19 Sulfate Hfa] Amlodipine Besylate 5 mg PO DAILY 06/26/19 Aspirin [Aspirin EC] 81 mg PO DAILY 06/26/19 Levothyroxine [Synthroid -] 125 mcg PO DAILY 06/26/19 REVIEW OF SYSTEMS per HPI PHYSICAL EXAMINATION Vital Signs - 24 hr 06/26/19 06/26/19 10:01 12:00 Temperature 98.3 F Pulse Rate 102 H Pulse Rate [ 92 H Apical] Respiratory 16 20 Rate Blood Pressure 131/93 Blood Pressure 131/82 [Right Arm] O2 Sat by Pulse 100 100 Oximetry (%) GENERAL: a/o x 3, in nad, comfortable HEAD: Normal with no signs of trauma. EYES: Pupils equal, round and reactive to light, conjunctiva clear. No lid lag. EARS, NOSE, THROAT: oropharynx clear without exudates. dry mucous membranes. no thrush, oral ulcers NECK: supple without lymphadenopathy, JVD, or masses. LUNGS: decreased breath sounds, mild expiratory wheezing HEART: RRR, no MGR ABDOMEN: Soft, nontender, not distended, normoactive bowel sounds LOWER EXTREMITIES: 2+ pulses, warm, No peripheral edema. NEUROLOGICAL: Cranial nerves II-XII intact. Laboratory Results - last 24 hr 06/26/19 06/26/19 06/26/19 10:35 10:35 10:35 WBC 4.5 RBC 5.50 H Hgb 16.1 H Hct 48.0 H MCV 87.4 MCH 29.4 MCHC 33.6 RDW 15.4 Plt Count 182 D MPV 10.5 D Absolute Neuts (auto) 2.7 Neutrophils % 60.1 Lymphocytes % 24.9 Monocytes % 12.8 H Eosinophils % 1.9 Basophils % 0.3 Nucleated RBC % 0 PT with INR INR PTT (Actin FS) VBG pH 7.43 H POC VBG pCO2 46.7 POC VBG pO2 < 49 H VBG HCO3 30.2 H VBG O2 Sat (Kadie) 74.0 VBG Base Excess 5.2 H Sodium 130 L Potassium 4.0 Chloride 92 L Carbon Dioxide 29 Anion Gap 8 BUN 22.0 H Creatinine 0.9 Est GFR (CKD-EPI)AfAm 82.26 Est GFR (CKD-EPI)NonAf 70.98 Random Glucose 90 Calcium 9.1 Phosphorus 4.2 Magnesium 1.8 Total Bilirubin 0.7 AST 36 ALT 38 Alkaline Phosphatase 77 Creatine Kinase 61 Troponin I < 0.02 Total Protein 7.9 Albumin 3.8 Lipase 36 L TSH 0.12 L Urine Color Urine Appearance Urine pH Ur Specific [place] Urine Protein Urine Glucose (UA) Urine Ketones Urine Blood Urine Nitrite Urine Bilirubin Urine Urobilinogen Ur Leukocyte Esterase Urine WBC (Auto) Urine RBC (Auto) Urine Casts (Auto) U Pathogenic Cast Auto U Epithel Cells (Auto) Urine Bacteria (Auto) 06/26/19 06/26/19 10:35 12:25 WBC RBC Hgb Hct MCV MCH MCHC RDW Plt Count MPV Absolute Neuts (auto) Neutrophils % Lymphocytes % Monocytes % Eosinophils % Basophils % Nucleated RBC % PT with INR 13.10 H INR 1.11 H PTT (Actin FS) 30.6 VBG pH POC VBG pCO2 POC VBG pO2 VBG HCO3 VBG O2 Sat (Kadie) VBG Base Excess Sodium Potassium Chloride Carbon Dioxide Anion Gap BUN Creatinine Est GFR (CKD-EPI)AfAm Est GFR (CKD-EPI)NonAf Random Glucose Calcium Phosphorus Magnesium Total Bilirubin AST ALT Alkaline Phosphatase Creatine Kinase Troponin I Total Protein Albumin Lipase TSH Urine Color Dk yellow Urine Appearance Cloudy Urine pH 5.0 Ur Specific [place] 1.028 Urine Protein 2+ H Urine Glucose (UA) Negative Urine Ketones Trace H Urine Blood Negative Urine Nitrite Negative Urine Bilirubin 2+ H Urine Urobilinogen 1.0 Ur Leukocyte Esterase Trace Urine WBC (Auto) 44 Urine RBC (Auto) 2 Urine Casts (Auto) 93 U Pathogenic Cast Auto Present U Epithel Cells (Auto) 12.2 Urine Bacteria (Auto) 466.5 ASSESSMENT/PLAN: 58 yo F with a 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 #Nausea/Vomiting/Weakness/Cough/Sore throat -likely 2/2 Flu B positive -likely side effects from FLU B positive vs chemo -patient likely volume depleted, will start IV fluids. -has not vomited since yesterday -was given 1 L bolus in ER -Flu swab -duonebs around the cloc -magic mouthwash -cepacol -protonix iv daily #Flu B positive -Start Tamiflu 75mg BID treatment -droplet precautions -could explain above problem. #Abnormal EKG -EKG changes with ST depressions in inferior and lateral leads, new compared to priors -repeat EKG with same results. -since patient has atypical symptoms, will rule out ACS -trend trop, neg x 1 -Fu repeat trop -repeat EKG -Echo -tele monitoring -cardio consult #Diarrhea -suspicious for colitis from chemotherapy vs viral syndome. patient has history of chemo induced colitis. -hold chemo agents for now -FU c diff antigens -stool cultures, wbc, ph #Dysphagia -likely from Flu -no thrush or ulcers seen in oropharynx -patient on chemotherapy, cannot r/o esophagitis -Never had an EGD #Asymptomatic Bacteriuria -patient asymptomatic -FU cultures -will hold off on abx at this time #Hypothyroidism -tsh 0.12 -hold levothyroxoine -free t4 in the morning #Met Ovarian Ca -hold chemo agents -follows Dr. Tan at [facility] #FEN -iv fluids -monitor -clear liquid for now #dvt ppx -hep sq Visit type - Emergency Visit Emergency Visit: Yes ED Registration Date: 06/26/19 Care time: The patient presented to the Emergency Department on the above date and was hospitalized for further evaluation of their emergent condition. - New Patient This patient is new to me today: Yes Date on this admission: 06/27/19 - Critical Care Critical Care patient: No ATTENDING PHYSICIAN STATEMENT I saw and evaluated the patient. I reviewed the resident's note and discussed the case with the resident. I agree with the resident's findings and plan as documented. SUBJECTIVE: OBJECTIVE: ASSESSMENT AND PLAN:
[2019-06-26] MEDS ORDERED: PANTOPRAZOLE SODIUM 40 MG VIAL ONE (16:04)
[2019-06-26] MEDS ORDERED: HEPARIN NA (PORCINE) 5,000 UNITS/ML 1ML VIAL ONE (16:04)
[2019-06-26] MEDS: HEPARIN NA (PORCINE) 5,000 UNITS/ML 1ML VIAL SQ SCH ×2 (16:15→23:19)
[2019-06-26] MEDS: PANTOPRAZOLE SODIUM 40 MG VIAL IVPUSH SCH (16:15)
[2019-06-26] MEDS ORDERED: ALBUTEROL SO4 2.5/IPRATROPIUM 0.5 INH SOL 3 ML VIAL.NEB. NEB ONE ×2 (16:29→21:47)
[2019-06-26] MEDS: ALBUTEROL SO4 2.5/IPRATROPIUM 0.5 INH SOL 3 ML VIAL.NEB. NEB SCH ×2 (16:36→21:33)
[2019-06-26] MEDS: MAG HYDROX/ALH/SMC/DPHA/LIDO 240 ML MOUTHWASH MM SCH (18:40)
[2019-06-26] MEDS: OSELTAMIVIR PHOSPHATE 75 MG CAPSULE PO SCH (23:18)
--- NOTE | 2019-06-26 23:53 | PN ---
Teaching Attending Note Name of Resident: Aletha yS ATTENDING PHYSICIAN STATEMENT I saw and evaluated the patient. I reviewed the resident's note and discussed the case with the resident. I agree with the resident's findings and plan as documented. 58 F h/o ovarian ca w/ metastasis (s/p laparatomy and JUDI/BSO) on chemo daily with Lenvima, Keytruda weekly, presenting with acute on chronic diarrhea, nausea vomiting and weakness. Patient endorses several weeks of nausea, vomiting and diarrhea but recently has become worse a/w weakness and malaise. Patient also complaining of throat pain, especially when swallowing making it difficult for her to eat. Denies h/o oral thrush, never got EGD. Flu swab positive for influenza A in ED. Patient admitted for influenza and placed on droplet isolation. PE VSS GA sitting up in stretcher, AAox3, speaks in full sentences, NAD HEENT NC/AT, EOMI, Neck supple, dry MM, no oral ulcers seen, no oral thrush Chest good air entry b/l, bilateral scattered wheezes CVS S1, S2+, sinus tachycardia Abd Soft, NT, ND, BS+ Ext No LE edema, moves all 4 ext. Vital Signs - 24 hr 06/26/19 06/26/19 06/26/19 10:01 12:00 16:15 Temperature 98.3 F 99.1 F Pulse Rate 102 H Pulse Rate [ 92 H 80 Apical] Respiratory 16 20 20 Rate Blood Pressure 131/93 Blood Pressure 131/82 114/63 [Right Arm] O2 Sat by Pulse 100 100 97 Oximetry (%) 06/26/19 22:02 Temperature 98.8 F Pulse Rate Pulse Rate [ 103 H Apical] Respiratory 20 Rate Blood Pressure Blood Pressure 129/75 [Right Arm] O2 Sat by Pulse 99 Oximetry (%) Laboratory Results - last 24 hr 06/26/19 06/26/19 06/26/19 10:35 10:35 10:35 WBC 4.5 RBC 5.50 H Hgb 16.1 H Hct 48.0 H MCV 87.4 MCH 29.4 MCHC 33.6 RDW 15.4 Plt Count 182 D MPV 10.5 D Absolute Neuts (auto) 2.7 Neutrophils % 60.1 Lymphocytes % 24.9 Monocytes % 12.8 H Eosinophils % 1.9 Basophils % 0.3 Nucleated RBC % 0 PT with INR INR PTT (Actin FS) VBG pH 7.43 H POC VBG pCO2 46.7 POC VBG pO2 < 49 H VBG HCO3 30.2 H VBG O2 Sat (Kadie) 74.0 VBG Base Excess 5.2 H Sodium 130 L Potassium 4.0 Chloride 92 L Carbon Dioxide 29 Anion Gap 8 BUN 22.0 H Creatinine 0.9 Est GFR (CKD-EPI)AfAm 82.26 Est GFR (CKD-EPI)NonAf 70.98 Random Glucose 90 Calcium 9.1 Phosphorus 4.2 Magnesium 1.8 Total Bilirubin 0.7 AST 36 ALT 38 Alkaline Phosphatase 77 Creatine Kinase 61 Troponin I < 0.02 Total Protein 7.9 Albumin 3.8 Lipase 36 L TSH 0.12 L Urine Color Urine Appearance Urine pH Ur Specific [place] Urine Protein Urine Glucose (UA) Urine Ketones Urine Blood Urine Nitrite Urine Bilirubin Urine Urobilinogen Ur Leukocyte Esterase Urine WBC (Auto) Urine RBC (Auto) Urine Casts (Auto) U Pathogenic Cast Auto U Epithel Cells (Auto) Urine Bacteria (Auto) Influenza A (Rapid) Influenza B (Rapid) 06/26/19 06/26/19 06/26/19 10:35 12:25 16:30 WBC RBC Hgb Hct MCV MCH MCHC RDW Plt Count MPV Absolute Neuts (auto) Neutrophils % Lymphocytes % Monocytes % Eosinophils % Basophils % Nucleated RBC % PT with INR 13.10 H INR 1.11 H PTT (Actin FS) 30.6 VBG pH POC VBG pCO2 POC VBG pO2 VBG HCO3 VBG O2 Sat (Kadie) VBG Base Excess Sodium Potassium Chloride Carbon Dioxide Anion Gap BUN Creatinine Est GFR (CKD-EPI)AfAm Est GFR (CKD-EPI)NonAf Random Glucose Calcium Phosphorus Magnesium Total Bilirubin AST ALT Alkaline Phosphatase Creatine Kinase Troponin I Total Protein Albumin Lipase TSH Urine Color Dk yellow Urine Appearance Cloudy Urine pH 5.0 Ur Specific [place] 1.028 Urine Protein 2+ H Urine Glucose (UA) Negative Urine Ketones Trace H Urine Blood Negative Urine Nitrite Negative Urine Bilirubin 2+ H Urine Urobilinogen 1.0 Ur Leukocyte Esterase Trace Urine WBC (Auto) 44 Urine RBC (Auto) 2 Urine Casts (Auto) 93 U Pathogenic Cast Auto Present U Epithel Cells (Auto) 12.2 Urine Bacteria (Auto) 466.5 Influenza A (Rapid) Negative Influenza B (Rapid) Positive A 06/26/19 18:00 WBC RBC Hgb Hct MCV MCH MCHC RDW Plt Count MPV Absolute Neuts (auto) Neutrophils % Lymphocytes % Monocytes % Eosinophils % Basophils % Nucleated RBC % PT with INR INR PTT (Actin FS) VBG pH POC VBG pCO2 POC VBG pO2 VBG HCO3 VBG O2 Sat (Kadie) VBG Base Excess Sodium Potassium Chloride Carbon Dioxide Anion Gap BUN Creatinine Est GFR (CKD-EPI)AfAm Est GFR (CKD-EPI)NonAf Random Glucose Calcium Phosphorus Magnesium Total Bilirubin AST ALT Alkaline Phosphatase Creatine Kinase Troponin I < 0.02 Total Protein Albumin Lipase TSH 0.06 L Urine Color Urine Appearance Urine pH Ur Specific [place] Urine Protein Urine Glucose (UA) Urine Ketones Urine Blood Urine Nitrite Urine Bilirubin Urine Urobilinogen Ur Leukocyte Esterase Urine WBC (Auto) Urine RBC (Auto) Urine Casts (Auto) U Pathogenic Cast Auto U Epithel Cells (Auto) Urine Bacteria (Auto) Influenza A (Rapid) Influenza B (Rapid) Home Medications Medication Instructions Recorded Lenvatinib Mesylate [Lenvima] 40 mg PO DAILY 07/18/18 Hydrochlorothiazide 25 mg PO DAILY #7 tablet 07/19/18 Albuterol Sulfate [Albuterol 18 gm IH PRN 06/26/19 Sulfate Hfa] Amlodipine Besylate 5 mg PO DAILY 06/26/19 Aspirin [Aspirin EC] 81 mg PO DAILY 06/26/19 Levothyroxine [Synthroid -] 125 mcg PO DAILY 06/26/19 Current Medications Generic Name Dose Route Start Last Admin Trade Name Freq PRN Reason Stop Dose Admin Albuterol/Ipratropium 1 amp 06/26/19 16:00 06/26/19 21:33 Duoneb - NEB 1 amp RQID JESUS ALBERTO Administration Benzocaine/Menthol 1 each 06/26/19 15:20 Cepacol Lozenge - MM PRN PRN SORE THROAT Heparin Sodium (Porcine) 5,000 unit 06/26/19 15:30 06/26/19 23:19 Heparin - SQ 5,000 unit TID JESUS ALBERTO Administration Sodium Chloride 1,000 mls @ 42 mls/hr 06/26/19 15:15 06/26/19 16:15 Normal Saline - IV 42 mls/hr ASDIR JESUS ALBERTO Administration Lidocaine/Aluminum/Magnesium/Simeth 5 ml 06/26/19 18:00 06/26/19 18:40 Magic Mouthwash *Sjr Formula* - MM 5 ml Q6HPO JESUS ALBERTO Administration Oseltamivir Phosphate 75 mg 06/26/19 22:00 06/26/19 23:18 Tamiflu - PO 07/01/19 21:59 75 mg BID JESUS ALBERTO Administration Pantoprazole Sodium 40 mg 06/26/19 15:30 06/26/19 16:15 Protonix Iv IVPUSH 40 mg DAILY JESUS ALBERTO Administration Sodium Chloride 3 ml 06/26/19 15:20 06/26/19 21:52 Normal Saline For Inhalation - IH 3 ml Q6H PRN Administration NASAL CONGESTION 58 yo F with a 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 Influenza A+ Droplet isolation, IVF, Tamiflu Replete electrolytes, repeat chem, educated patient to notify family of finding EKG changes EKG showing new ST depressions in V3-V6 and inferior leads Denies CP/SOB, trops neg. x2 Obtain echo Cardiology consult Hypothyroidism suppressed TSH, ?overtreated w/ Synthroid v.s. subacute thyroiditis? (due to throat pain) send FT3/FT4 Endocrine consult: Dr Camarena Acute on chronic diarrhea Likely 2/2 chemo therapy agents Send stool for ova/parasites, c. diff, WBC/cell count, culture, pH Avoid PPIs, laxatives Ovarian ca w/ metastasis On Lenvima/Keytruda, Obtain collateral from [facility] from [facility] Send anemia workup DVT ppx: Heparin SC FEN: IVF/chem daily, soft diet
[2019-06-27 01:08] VITALS: BMI 32.5
[2019-06-27] MEDS: MAG HYDROX/ALH/SMC/DPHA/LIDO 240 ML MOUTHWASH MM SCH ×4 (07:01→17:40)
[2019-06-27] MEDS: HEPARIN NA (PORCINE) 5,000 UNITS/ML 1ML VIAL SQ SCH ×3 (07:02→21:39)
[2019-06-27] MEDS: BENZOCAINE/MENTH/CETYLPYRD CL 1 EACH LOZENGE MM PRN (07:02)
[2019-06-27 07:23] LABS: BASO % 0.4 % (0-2.0); EOS % 1.8 % (0-4.5); HEMOGLOBIN 14.6 GM/dL (10.7-15.3); LYMPH % 42.4 % (8-40); MCHC 33.3 g/dl (32.0-36.0); MEAN CELL VOLUME 87.2 fl (80-96); MEAN PLT VOLUME 10.2 fl (7.5-11.1); MONO % 11.1 % (3.8-10.2); NEUT % 44.3 % (42.8-82.8); PLATELET COUNT 165 K/MM3 (134-434); RBC 5.05 M/mm3 (3.60-5.2); RDW 15.2 % (11.6-15.6); WHITE BLOOD COUNT 3.5 K/mm3 (4.0-10.0)
[2019-06-27 07:49] LABS: BLOOD UREA NITROGEN 19.6 mg/dL (7-18); CALCIUM 8.4 mg/dL (8.5-10.1); CREATININE 0.8 mg/dL (0.55-1.3); MAGNESIUM 1.7 mg/dL (1.8-2.4); PHOSPHOROUS 3.4 mg/dL (2.5-4.9); POTASSIUM 3.6 mmol/L (3.5-5.1); TOT PROT 6.4 g/dl (6.4-8.2)
[2019-06-27] MEDS: ALBUTEROL SO4 2.5/IPRATROPIUM 0.5 INH SOL 3 ML VIAL.NEB. NEB SCH ×4 (08:11→20:20)
--- NOTE | 2019-06-27 08:54 | PN ---
Teaching Attending Note Name of Resident: Aletha Sy ATTENDING PHYSICIAN STATEMENT I saw and evaluated the patient. I reviewed the resident's note and discussed the case with the resident. I agree with the resident's findings and plan as documented. SUBJECTIVE: Patient feels improved, denies any chest pain nausea vomiting diarrhea improving OBJECTIVE: Vital Signs Temperature 97.8 F 06/27/19 06:00 Pulse Rate 102 H 06/27/19 06:00 Respiratory Rate 20 06/27/19 01:46 Blood Pressure 118/80 06/27/19 06:00 O2 Sat by Pulse Oximetry (%) 99 06/26/19 22:02 General: Middle-aged female comfortable, not in distress HEENT; mucous membranes moist, no anemia, no jaundice, PERRLA, no nystagmus Neck: No JVD, supple, no bruit, thyroid palpably normal, normal carotid pulsations. Chest: Nontender, clear to auscultation bilaterally CVS: S1-S2 regular no murmur/gallop/rub Abdomen: Nondistended, soft, bowel sounds present. Extremities: No edema., No calf tenderness, pulses present [employer]: AO X3 , no gross motor sensory deficit CBC, BMP 06/27/19 06:44 06/27/19 06:44 Active Medications Albuterol/Ipratropium (Duoneb -) 1 amp NEB RQID [facility] [place] Last Admin: 06/26/19 21:33 Dose: 1 amp Amlodipine Besylate (Norvasc -) 5 mg PO DAILY [facility] [place] Aspirin (Ecotrin -) 81 mg PO DAILY [facility] [place] Benzocaine/Menthol (Cepacol Lozenge -) 1 each MM PRN PRN PRN Reason: SORE THROAT Last Admin: 06/27/19 07:02 Dose: 1 each Heparin Sodium (Porcine) (Heparin -) 5,000 unit SQ TID [facility] [place] Last Admin: 06/27/19 07:02 Dose: 5,000 unit Hydrochlorothiazide (Hctz -) 25 mg PO DAILY [facility] [place] Sodium Chloride (Normal Saline -) 1,000 mls @ 42 mls/hr IV ASDIR [facility] [place] Last Admin: 06/26/19 16:15 Dose: 42 mls/hr Lidocaine/Aluminum/Magnesium/Simeth (Magic Mouthwash *Sjr Formula* -) 5 ml MM Q6HPO [facility] [place] Last Admin: 06/27/19 07:02 Dose: Not Given Oseltamivir Phosphate (Tamiflu -) 75 mg PO BID [facility] [place] Stop: 07/01/19 21:59 Last Admin: 06/26/19 23:18 Dose: 75 mg Pantoprazole Sodium (Protonix Iv) 40 mg IVPUSH DAILY [facility] [place] Last Admin: 06/26/19 16:15 Dose: 40 mg Sodium Chloride (Normal Saline For Inhalation -) 3 ml IH Q6H PRN PRN Reason: NASAL CONGESTION Last Admin: 06/26/19 21:52 Dose: 3 ml ASSESSMENT AND PLAN: 58 F h/o ovarian ca w/ metastasis (s/p laparatomy and JUDI/BSO) on chemo daily with Lenvima, Keytruda weekly, presenting with acute on chronic diarrhea, nausea vomiting and weakness. Patient endorses several weeks of nausea, vomiting and diarrhea but recently has become worse a/w weakness and malaise. Patient also complaining of throat pain, especially when swallowing making it difficult for her to eat. Denies h/o oral thrush, never got EGD. Flu swab positive for influenza A in ED. Plan: 1. Continue Tamiflu for influenza 2. EKG shows nonspecific ST-T changes, normal serial cardiac enzyme no chest pain will follow echocardiogram rest management as per echocardiogram. 3. TSH suppressed and T4 is 140 mcg upper limit of normal will reduce dose of levothyroxine 100 mg of TSH after 3 weeks 4. Hypertension: Well-controlled continue all home medications 5 reactive airway disease continue DuoNeb as needed
[2019-06-27] MEDS: HYDROCHLOROTHIAZIDE 25 MG TABLET (FP) PO SCH (09:34)
[2019-06-27] MEDS: PANTOPRAZOLE SODIUM 40 MG VIAL IVPUSH SCH (09:34)
[2019-06-27] MEDS: amLODIPine BESYLATE 5 MG TABLET (FP) PO SCH (09:34)
[2019-06-27] MEDS: OSELTAMIVIR PHOSPHATE 75 MG CAPSULE PO SCH ×2 (09:34→21:37)
[2019-06-27] MEDS: ASPIRIN COATED 81 MG TABLET.EC PO SCH (09:34)
[2019-06-27 10:52] LABS: ANISOCYTOSIS 1+; MACROCYTOSIS 0; OVALOCYTE 1+; PLATELET ESTIMATE NORMAL; TEAR DROP CELLS 1+
--- NOTE | 2019-06-27 11:00 | EKG ---
Test Reason : Blood Pressure : / mmHG Vent. Rate : 098 BPM Atrial Rate : 098 BPM P-R Int : 144 ms QRS Dur : 074 ms QT Int : 352 ms P-R-T Axes : 070 066 -19 degrees QTc Int : 449 ms NORMAL SINUS RHYTHM POSSIBLE LEFT ATRIAL ENLARGEMENT ABNORMAL ECG WHEN COMPARED WITH ECG OF 26-JUN-2019 18:31, NO SIGNIFICANT CHANGE WAS FOUND Confirmed by Giovani Joseph MD ([id number]) on 06/27/2019 11:00:21 AM Referred By: Confirmed By:Giovani Joseph MD
--- NOTE | 2019-06-27 11:04 | CON.CARD ---
Consult Consult Specialty:: Cardiology Reason for Consultation:: abn ekg - History of Present Illness History of Present Illness: 58 F h/o ovarian ca w/ metastasis (s/p laparatomy and JUDI/BSO) on chemo daily with Lenvima, Keytruda weekly, presenting with acute on chronic diarrhea, nausea vomiting and weakness. Patient endorses several weeks of nausea, vomiting and diarrhea but recently has become worse a/w weakness and malaise. Patient also complaining of throat pain, especially when swallowing making it difficult for her to eat. Denies h/o oral thrush, never got EGD. Flu swab positive for influenza A in ED. Patient admitted for influenza and placed on droplet isolation. - History Source History Provided By: Patient, Medical Record - Past Medical History Cardio/Vascular: Yes: HTN ...: No Endocrine: Yes: Hypothyroidism - Alcohol/Substance Use Hx Alcohol Use: No - Smoking History Smoking history: Former smoker Have you smoked in the past 12 months: No Aproximately how many cigarettes per day: 2 Home Medications - Allergies Allergies/Adverse Reactions: Allergies Allergy/AdvReac Type Severity Reaction Status Date / Time No Known Allergies Allergy Verified 07/09/18 03:47 - Home Medications Home Medications: Ambulatory Orders Lenvatinib Mesylate [Lenvima] 40 mg PO DAILY 07/18/18 Hydrochlorothiazide 25 mg PO DAILY #7 tablet 07/19/18 Albuterol Sulfate [Albuterol Sulfate Hfa] 18 gm IH PRN 06/26/19 Amlodipine Besylate 5 mg PO DAILY 06/26/19 Aspirin [Aspirin EC] 81 mg PO DAILY 06/26/19 Levothyroxine [Synthroid -] 125 mcg PO DAILY 06/26/19 Review of Systems - Review of Systems Constitutional: reports: No Symptoms, Fever, Malaise Eyes: reports: No Symptoms HENT: reports: No Symptoms Neck: reports: No Symptoms Cardiovascular: reports: No Symptoms Respiratory: reports: Cough Gastrointestinal: reports: No Symptoms Genitourinary: reports: No Symptoms Breasts: reports: No Symptoms Reported Musculoskeletal: reports: No Symptoms Integumentary: reports: No Symptoms Neurological: reports: No Symptoms Endocrine: reports: No Symptoms Hematology/Lymphatic: reports: No Symptoms Psychiatric: reports: No Symptoms Vital Signs: Vital Signs Temperature 97.8 F 06/27/19 06:00 Pulse Rate 102 H 06/27/19 06:00 Respiratory Rate 06/27/19 09:00 Blood Pressure 118/80 06/27/19 06:00 O2 Sat by Pulse Oximetry (%) 96 06/27/19 09:00 Constitutional: Yes: Well Nourished, No Distress, Calm Eyes: Yes: WNL, Conjunctiva Clear, EOM Intact HENT: Yes: WNL, Atraumatic, Normocephalic Neck: Yes: WNL, Supple, Trachea Midline Respiratory: Yes: WNL, Regular, CTA Bilaterally Gastrointestinal: Yes: WNL, Normal Bowel Sounds Renal/: Yes: WNL Cardiovascular: Yes: WNL, Regular Rate and Rhythm Musculoskeletal: Yes: WNL Extremities: Yes: WNL Integumentary: Yes: WNL Neurological: Yes: WNL, Alert, Oriented ...Motor Strength: WNL Psychiatric: Yes: WNL, Alert, Oriented - Other Data Labs, Other Data: CBC, BMP 06/27/19 06:44 06/27/19 06:44 INR, PTT INR 1.11 (0.83-1.09) H 06/26/19 10:35 Troponin, BNP 06/26/19 06/26/19 10:35 18:00 Troponin I < 0.02 < 0.02 Troponin, BNP 06/26/19 06/26/19 10:35 18:00 Troponin I < 0.02 < 0.02 Imaging - Results Chest X-ray: Image Reviewed (negative) EKG: Image Reviewed (sr inf lat st depressions) Problem List - Problems (1) Diarrhea Code(s): R19.7 - DIARRHEA, UNSPECIFIED Qualifiers: Diarrhea type: unspecified type Qualified Code(s): R19.7 - Diarrhea, unspecified (2) Nausea & vomiting Code(s): R11.2 - NAUSEA WITH VOMITING, UNSPECIFIED Qualifiers: Vomiting type: unspecified Vomiting Intractability: non-intractable Qualified Code(s): R11.2 - Nausea with vomiting, unspecified (3) Ovarian cancer Code(s): C56.9 - MALIGNANT NEOPLASM OF UNSPECIFIED OVARY Qualifiers: Laterality: bilateral Qualified Code(s): C56.1 - Malignant neoplasm of right ovary; C56.2 - Malignant neoplasm of left ovary (4) Chest pain Code(s): R07.9 - CHEST PAIN, UNSPECIFIED Qualifiers: Chest pain type: unspecified Qualified Code(s): R07.9 - Chest pain, unspecified (5) High blood pressure Code(s): I10 - ESSENTIAL (PRIMARY) HYPERTENSION (6) UTI (urinary tract infection) Code(s): N39.0 - URINARY TRACT INFECTION, SITE NOT SPECIFIED Qualifiers: Urinary tract infection type: acute cystitis Hematuria presence: without hematuria Qualified Code(s): N30.00 - Acute cystitis without hematuria Assessment/Plan 58 yo F with a PMHx of met ovarian ca (s/p laparatomy and JUDI/BSO), now on chemo daily with Lenvima, Keytruda weekly, presenting with 3 weeks of weakness, nausea, vomiting, poor PO, and daily diarrhea d/ with Influenza and EKG changes old?new. Denies h/o of abnormal EKG or CAD Influenza A+ Droplet isolation, IVF, Tamiflu EKG changes EKG showing new ST depressions in V3-V6 and inferior leads Denies CP/SOB, trops neg. x2 Obtain echo stress test when stable and recovers from flu cont telemetry Hypothyroidism suppressed TSH, ?overtreated w/ Synthroid v.s. subacute thyroiditis? (due to throat pain) send FT3/FT4 Endocrine consult: Dr Camarena DVT ppx: Heparin SC
--- NOTE | 2019-06-27 11:23 | EKG ---
Test Reason : Blood Pressure : / mmHG Vent. Rate : 095 BPM Atrial Rate : 095 BPM P-R Int : 146 ms QRS Dur : 080 ms QT Int : 358 ms P-R-T Axes : 072 068 006 degrees QTc Int : 449 ms POOR DATA QUALITY, INTERPRETATION MAY BE ADVERSELY AFFECTED NORMAL SINUS RHYTHM BIATRIAL ENLARGEMENT ABNORMAL ECG Confirmed by Giovani Joseph MD ([id number]) on 06/27/2019 11:22:34 AM Referred By: Confirmed By:Giovani Joseph MD
--- NOTE | 2019-06-27 11:36 | ECHO ---
Name: RUBIN MOREJON Exam:Adult Echocardiogram Study Date: 06/27/2019 10:21 AM Age: 58 yrs Height: 62 in Weight: 160 lb BSA: 1.7 m2 MMode/2D Measurements & Calculations IVSd: 0.93 cm Ao root diam: 2.3 cm LVIDd: 3.0 cm LA dimension: 1.9 cm LVIDs: 2.1 cm LVPWd: 1.1 cm LVPWs: 1.4 cm EDV(Teich): 35.5 ml ESV(Teich): 14.6 ml LVOT diam: 2.0 cm RV S Waqas: 12.5 cm/sec Doppler Measurements & Calculations MV E max waqas: 48.4 cm/sec Ao V2 max: 117.3 cm/sec MV A max waqas: 63.7 cm/sec Ao max P.5 mmHg MV E/A: 0.76 MV dec time: 0.11 sec DANIEL(V,D): 1.9 cm2 LV V1 max P.2 mmHg PA V2 max: 114.0 cm/sec LV V1 max: 73.5 cm/sec PA max P.2 mmHg Med Peak E' Waqas: 5.0 cm/sec Med E/e': 9.7 Lat Peak E' Waqas: 9.5 cm/sec Lat E/e': 5.1 Procedure A two-dimensional transthoracic echocardiogram with color flow and Doppler was performed. The study w as technically difficult with many images being suboptimal in quality. Left Ventricle The left ventricular size, thickness and function are normal. The left ventricle is not well visualiz ed. The left ventricular ejection fraction is normal. E/A reversal consistent with but not diagnostic of poor LV compliance. Regional wall motion abnormalities cannot be excluded due to limited visualization. Right Ventricle The right ventricle is not well visualized. Atria Normal left and right atrial size and function. Mitral Valve There is mild mitral valve thickening. There is no mitral valve stenosis. There is trace mitral regur gitation. Tricuspid Valve There is mild tricuspid valve thickening. There is no tricuspid stenosis. There is trace tricuspid regurgitation. Right ventricular systolic pressure is normal. Aortic Valve The aortic valve is normal in structure and function. No hemodynamically significant valvular aortic stenosis. No aortic regurgitation is present. Pulmonic Valve The pulmonic valve is not well visualized. Great Vessels The aortic root is normal size. Pericardium/Pleura Trivial pericardial effusion not hemodynamically significant. Interpretation Summary The left ventricular size, thickness and function are normal The left ventricular ejection fraction is normal. The study was technically difficult with many images being suboptimal in quality. The left ventricle is not well visualized. Regional wall motion abnormalities cannot be excluded due to limited visualization. E/A reversal consistent with but not diagnostic of poor LV compliance There is trace mitral regurgitation. There is trace tricuspid regurgitation. Right ventricular systolic pressure is normal. Trivial pericardial effusion not hemodynamically significant MD Andre Nj 06/27/2019 11:36 AM
--- NOTE | 2019-06-27 15:13 | PN ---
Physical Exam: SUBJECTIVE: Patient seen and examined. Says she feels better overall including her sore throat. also says her BM are more formed and less watery than yesterday. OBJECTIVE: Vital Signs Period Temp Pulse Resp BP Sys/Bush Pulse Ox Last 24 Hr 97.8 F-99.1 F 80-109 18-20 105-139/63-86 96-99 GENERAL: a/o x 3, in nad, comfortable HEAD: Normal with no signs of trauma. EYES: Pupils equal, round and reactive to light, conjunctiva clear. No lid lag. EARS, NOSE, THROAT: oropharynx clear without exudates. moist mucous membranes. no thrush, oral ulcers NECK: supple without lymphadenopathy, JVD, or masses. LUNGS: decreased breath sounds HEART: RRR, no MGR ABDOMEN: Soft, nontender, not distended, normoactive bowel sounds LOWER EXTREMITIES: 2+ pulses, warm, No peripheral edema. NEUROLOGICAL: Cranial nerves II-XII intact. Laboratory Results - last 24 hr 06/26/19 06/26/19 06/27/19 16:30 18:00 06:44 WBC 3.5 L RBC 5.05 Hgb 14.6 Hct 44.0 MCV 87.2 MCH 29.0 MCHC 33.3 RDW 15.2 Plt Count 165 MPV 10.2 Absolute Neuts (auto) 1.6 Neutrophils % 44.3 D Neutrophils % (Manual) 42.1 L Band Neutrophils % 3.2 Lymphocytes % 42.4 H D Lymphocytes % (Manual) 21.0 Monocytes % 11.1 H Monocytes % (Manual) 11 H Eosinophils % 1.8 Eosinophils % (Manual) 2.1 Basophils % 0.4 Basophils % (Manual) 1.1 Myelocytes % (Man) 0 Promyelocytes % (Man) 0 Blast Cells % (Manual) 0 Nucleated RBC % 0 Metamyelocytes 0 Hypochromia 0 Platelet Estimate Normal Platelet Comment Present Polychromasia 0 Poikilocytosis 1+ Anisocytosis 1+ Microcytosis 1+ Macrocytosis 0 Spherocytes 1+ Tear Drop Cells 1+ Ovalocytes 1+ Sodium Potassium Chloride Carbon Dioxide Anion Gap BUN Creatinine Est GFR (CKD-EPI)AfAm Est GFR (CKD-EPI)NonAf Random Glucose Calcium Phosphorus Magnesium Total Bilirubin AST ALT Alkaline Phosphatase Troponin I < 0.02 Total Protein Albumin Triglycerides Cholesterol Total LDL Cholesterol HDL Cholesterol TSH 0.06 L Free T4 Influenza A (Rapid) Negative Influenza B (Rapid) Positive A 06/27/19 06/27/19 06:44 06:44 WBC RBC Hgb Hct MCV MCH MCHC RDW Plt Count MPV Absolute Neuts (auto) Neutrophils % Neutrophils % (Manual) Band Neutrophils % Lymphocytes % Lymphocytes % (Manual) Monocytes % Monocytes % (Manual) Eosinophils % Eosinophils % (Manual) Basophils % Basophils % (Manual) Myelocytes % (Man) Promyelocytes % (Man) Blast Cells % (Manual) Nucleated RBC % Metamyelocytes Hypochromia Platelet Estimate Platelet Comment Polychromasia Poikilocytosis Anisocytosis Microcytosis Macrocytosis Spherocytes Tear Drop Cells Ovalocytes Sodium 135 L Potassium 3.6 Chloride 98 Carbon Dioxide 27 Anion Gap 10 BUN 19.6 H Creatinine 0.8 Est GFR (CKD-EPI)AfAm 94.85 Est GFR (CKD-EPI)NonAf 81.84 Random Glucose 98 Calcium 8.4 L Phosphorus 3.4 Magnesium 1.7 L Total Bilirubin 1.0 AST 21 ALT 25 Alkaline Phosphatase 62 Troponin I Total Protein 6.4 Albumin 3.0 L Triglycerides 162 H Cholesterol 130 Total LDL Cholesterol 70 HDL Cholesterol 26 L TSH Free T4 1.40 Influenza A (Rapid) Influenza B (Rapid) Active Medications Generic Name Dose Route Start Last Admin Trade Name Freq PRN Reason Stop Dose Admin Albuterol/Ipratropium 1 amp 06/26/19 16:00 06/27/19 12:01 Duoneb - NEB 1 amp RQID JESUS ALBERTO Administration Amlodipine Besylate 5 mg 06/27/19 10:00 06/27/19 09:34 Norvasc - PO 5 mg DAILY JESUS ALBERTO Administration Aspirin 81 mg 06/27/19 10:00 06/27/19 09:34 Ecotrin - PO 81 mg DAILY JESUS ALBERTO Administration Benzocaine/Menthol 1 each 06/26/19 15:20 06/27/19 07:02 Cepacol Lozenge - MM 1 each PRN PRN Administration SORE THROAT Heparin Sodium (Porcine) 5,000 unit 06/26/19 15:30 06/27/19 14:31 Heparin - SQ Not Given TID JESUS ALBERTO Hydrochlorothiazide 25 mg 06/27/19 10:00 06/27/19 09:34 Hctz - PO 25 mg DAILY JESUS ALBERTO Administration Sodium Chloride 1,000 mls @ 42 mls/hr 06/26/19 15:15 06/26/19 16:15 Normal Saline - IV 42 mls/hr ASDIR JESUS ALBERTO Administration Levothyroxine Sodium 100 mcg 06/28/19 07:00 Synthroid - PO DAILY@0700 JESUS ALBERTO Lidocaine/Aluminum/Magnesium/Simeth 5 ml 06/26/19 18:00 06/27/19 12:09 Magic Mouthwash *Sjr Formula* - MM 5 ml Q6HPO JESUS ALBERTO Administration Magnesium Sulfate 1 gm 06/27/19 15:06 Magnesium Sulfate IVPB 06/27/19 15:07 ONCE ONE Oseltamivir Phosphate 75 mg 06/26/19 22:00 06/27/19 09:34 Tamiflu - PO 07/01/19 21:59 75 mg BID JESUS ALBERTO Administration Pantoprazole Sodium 40 mg 06/26/19 15:30 06/27/19 09:34 Protonix Iv IVPUSH 40 mg DAILY JESUS ALBERTO Administration Sodium Chloride 3 ml 06/26/19 15:20 06/26/19 21:52 Normal Saline For Inhalation - IH 3 ml Q6H PRN Administration NASAL CONGESTION ASSESSMENT/PLAN: 58 yo F with a 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 #Flu B positive -symptoms improving -Cont. Tamiflu 75mg BID treatment -droplet precautions #Abnormal EKG -EKG changes with ST depressions in inferior and lateral leads, new compared to priors -repeat EKG with same results. -since patient has atypical symptoms, will rule out ACS -trop neg x 2 -Echo: normal LV functon. -cardio on board. -she will follow up outpatient. stress test once recovers from flu per cardio #Diarrhea -says her stool is more formed today. less diarrhea -likely from flu vs colitis from chemotherapy. patient has history of chemo induced colitis. -hold chemo agents for now -FU c diff antigens -stool cultures, wbc, ph #Dysphagia -likely from Flu -no thrush or ulcers seen in oropharynx -patient on chemotherapy, cannot r/o esophagitis -Never had an EGD #Asymptomatic Bacteriuria -patient asymptomatic -FU cultures -will hold off on abx at this time #Hypothyroidism -tsh 0.12 -decrease levothyroxine to 100mcg from 125 -normal free 4 #Met Ovarian Ca -hold chemo agents -follows Dr. Tan at [place] #FEN -dc iv fluids -monitor -soft diet #dvt ppx -hep sq Visit type - Emergency Visit Emergency Visit: Yes ED Registration Date: 06/26/19 Care time: The patient presented to the Emergency Department on the above date and was hospitalized for further evaluation of their emergent condition. - New Patient This patient is new to me today: Yes Date on this admission: 06/27/19 - Critical Care Critical Care patient: No ATTENDING PHYSICIAN STATEMENT I saw and evaluated the patient. I reviewed the resident's note and discussed the case with the resident. I agree with the resident's findings and plan as documented. SUBJECTIVE: OBJECTIVE: ASSESSMENT AND PLAN:
[2019-06-27] MEDS ORDERED: MAGNESIUM SULF 50% (8.12 MEQ/2 ML-1 GM VIAL) IVPB ONE (15:15)
[2019-06-28] MEDS: BENZOCAINE/MENTH/CETYLPYRD CL 1 EACH LOZENGE MM PRN (01:12)
[2019-06-28] MEDS: MAG HYDROX/ALH/SMC/DPHA/LIDO 240 ML MOUTHWASH MM SCH ×2 (05:54→06:20)
[2019-06-28] MEDS: HEPARIN NA (PORCINE) 5,000 UNITS/ML 1ML VIAL SQ SCH (05:54)
[2019-06-28] MEDS ORDERED: PT OWN MED DRAWER 7, Y5N ONE (05:55)
[2019-06-28] MEDS ORDERED: LEVOTHYROXINE NA 100 MCG TABLET (FP) PO SCH (07:00)
[2019-06-28] MEDS: ALBUTEROL SO4 2.5/IPRATROPIUM 0.5 INH SOL 3 ML VIAL.NEB. NEB SCH (07:31)
--- NOTE | 2019-06-28 08:08 | DS ---
Physical Exam: SUBJECTIVE: Patient seen and examined. Offers no new complaints. Says her symptoms have improved. OBJECTIVE: Vital Signs Period Temp Pulse Resp BP Sys/Bush Pulse Ox Last 24 Hr 98.2 F-98.8 F 85-109 18-20 106-113/63-83 96-96 PHYSICAL EXAM GENERAL: a/o x 3, in nad, comfortable HEAD: Normal with no signs of trauma. EYES: Pupils equal, round and reactive to light, conjunctiva clear. No lid lag. EARS, NOSE, THROAT: oropharynx clear without exudates. moist mucous membranes. no thrush, oral ulcers NECK: supple without lymphadenopathy, JVD, or masses. LUNGS: decreased breath sounds HEART: RRR, no MGR ABDOMEN: Soft, nontender, not distended, normoactive bowel sounds LOWER EXTREMITIES: 2+ pulses, warm, No peripheral edema. LABS Laboratory Results - last 24 hr 06/27/19 06/27/19 06:44 06:44 WBC 3.5 L RBC 5.05 Hgb 14.6 Hct 44.0 MCV 87.2 MCH 29.0 MCHC 33.3 RDW 15.2 Plt Count 165 MPV 10.2 Absolute Neuts (auto) 1.6 Neutrophils % 44.3 D Neutrophils % (Manual) 42.1 L Band Neutrophils % 3.2 Lymphocytes % 42.4 H D Lymphocytes % (Manual) 21.0 Monocytes % 11.1 H Monocytes % (Manual) 11 H Eosinophils % 1.8 Eosinophils % (Manual) 2.1 Basophils % 0.4 Basophils % (Manual) 1.1 Myelocytes % (Man) 0 Promyelocytes % (Man) 0 Blast Cells % (Manual) 0 Nucleated RBC % 0 Metamyelocytes 0 Hypochromia 0 Platelet Estimate Normal Platelet Comment Present Polychromasia 0 Poikilocytosis 1+ Anisocytosis 1+ Microcytosis 1+ Macrocytosis 0 Spherocytes 1+ Tear Drop Cells 1+ Ovalocytes 1+ Free T3 2.0 HOSPITAL COURSE: Date of Admission:06/26/19 58 yo F with a 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 #Flu B positive -symptoms improving -Cont. Tamiflu 75mg BID treatment -will complete Tamiflu on discharge. #Abnormal EKG -EKG changes with ST depressions in inferior and lateral leads, new compared to priors -repeat EKG with same results. -trop neg x 2 -Echo: normal LV functon. -cardio on board. -she will follow up outpatient. stress test once recovers from flu per cardio -Start Toprol 25mg daily and d/c Norvasc. #Diarrhea -says her stool is more formed today. less diarrhea -likely from flu vs colitis from chemotherapy. patient has history of chemo induced colitis. -hold chemo agents for now and will follow up outpatient with heme/onc #Dysphagia -improving -likely from Flu -no thrush or ulcers seen in oropharynx -patient on chemotherapy, cannot r/o esophagitis -Never had an EGD #Asymptomatic Bacteriuria -patient asymptomatic -FU cultures -will hold off on abx at this time #Hypothyroidism -tsh 0.12 -decrease levothyroxine to 100mcg from 125 -normal free t4 #Met Ovarian Ca -hold chemo agents -follows Dr. Tan at [place] Date of Discharge: 06/28/19 Minutes to complete discharge: 35 Discharge Summary Problems reviewed: Yes Reason For Visit: MALIGNANT NEOPLASM OF OVARY,DIARRHEA,NAUSEA,VOMITI Current Active Problems Diarrhea (Acute) Nausea & vomiting (Acute) Ovarian cancer (Acute) Condition: Improved - Instructions Diet, Activity, Other Instructions: You were admitted because you were Flu B positive and improved with treatment. Continue to take Tamiflu until 06/30. Do not take your Lenvima until you see your customer sales distributor/oncologist. We decreased your levothyroxine (thyroid medication) to 100mcg instead of 125mcg. You were also found to have some abnormalities with your EKG. It is recommended you follow up with a heart doctor for further evaluation, including a stress test. We stopped your Amlodipine medication for your high blood pressure and switched you to Metoprolol 25mg every day until you see your air export agent. Follow up with your primary care doctor within 1 week. If you develop chest pain, fevers, chills, shortness of breath, please go to your nearest emergency department. Referrals: Karlo Licona MD [Primary Care Provider] - 1 Week Andre Nj MD [Staff Physician] - 1 Week Disposition: HOME - Home Medications Comprehensive Discharge Medication List: Ambulatory Orders Hydrochlorothiazide 25 mg PO DAILY #7 tablet 07/19/18 Albuterol Sulfate [Albuterol Sulfate Hfa] 18 gm IH PRN 06/26/19 Amlodipine Besylate 5 mg PO DAILY 06/26/19 Aspirin [Aspirin EC] 81 mg PO DAILY 06/26/19 Levothyroxine [Synthroid -] 100 mcg PO DAILY@0700 #30 tablet 06/28/19 Oseltamivir Phosphate [Tamiflu -] 75 mg PO BID #6 capsule 06/28/19 This patient is new to me today: Yes Date on this admission: 06/28/19 Emergency Visit: Yes ED Registration Date: 06/26/19 Care time: The patient presented to the Emergency Department on the above date and was hospitalized for further evaluation of their emergent condition. Critical Care patient: No - Discharge Referral Referred to [facility] Med P.C.: No ATTENDING PHYSICIAN STATEMENT I saw and evaluated the patient. I reviewed the resident's note and discussed the case with the resident. I agree with the resident's findings and plan as documented. SUBJECTIVE: OBJECTIVE: ASSESSMENT AND PLAN:
--- NOTE | 2019-06-28 08:18 | PN ---
Teaching Attending Note Name of Resident: Aletha Sy ATTENDING PHYSICIAN STATEMENT I saw and evaluated the patient. I reviewed the resident's note and discussed the case with the resident. I agree with the resident's findings and plan as documented. SUBJECTIVE: Patient remained afebrile, diarrhea improving feels improved OBJECTIVE: Vital Signs Temperature 98.8 F 06/28/19 01:38 Pulse Rate 85 06/28/19 01:38 Respiratory Rate 20 06/28/19 01:38 Blood Pressure 113/63 06/28/19 01:38 O2 Sat by Pulse Oximetry (%) 96 06/27/19 21:00 General: Middle-aged female comfortable, not in distress HEENT; mucous membranes moist, no anemia, no jaundice, PERRLA, no nystagmus Neck: No JVD, supple, no bruit, thyroid palpably normal, normal carotid pulsations. Chest: Nontender, clear to auscultation bilaterally CVS: S1-S2 regular no murmur/gallop/rub Abdomen: Nondistended, soft, bowel sounds present. Extremities: No edema., No calf tenderness, pulses present [employer]: AO X3 , no gross motor sensory deficit CBC, BMP 06/27/19 06:44 06/27/19 06:44 Echocardiogram: Normal left ventricular ejection fraction no wall motion abnormality normal valves Active Medications Albuterol/Ipratropium (Duoneb -) 1 amp NEB RQID [facility] Last Admin: 06/26/19 21:33 Dose: 1 amp Amlodipine Besylate (Norvasc -) 5 mg PO DAILY [facility] Aspirin (Ecotrin -) 81 mg PO DAILY [facility] Benzocaine/Menthol (Cepacol Lozenge -) 1 each MM PRN PRN PRN Reason: SORE THROAT Last Admin: 06/27/19 07:02 Dose: 1 each Heparin Sodium (Porcine) (Heparin -) 5,000 unit SQ TID [facility] Last Admin: 06/27/19 07:02 Dose: 5,000 unit Hydrochlorothiazide (Hctz -) 25 mg PO DAILY [facility] Sodium Chloride (Normal Saline -) 1,000 mls @ 42 mls/hr IV ASDIR [facility] Last Admin: 06/26/19 16:15 Dose: 42 mls/hr Lidocaine/Aluminum/Magnesium/Simeth (Magic Mouthwash *Sjr Formula* -) 5 ml MM Q6HPO [facility] Last Admin: 06/27/19 07:02 Dose: Not Given Oseltamivir Phosphate (Tamiflu -) 75 mg PO BID [facility] Stop: 07/01/19 21:59 Last Admin: 06/26/19 23:18 Dose: 75 mg Pantoprazole Sodium (Protonix Iv) 40 mg IVPUSH DAILY [facility] Last Admin: 06/26/19 16:15 Dose: 40 mg Sodium Chloride (Normal Saline For Inhalation -) 3 ml IH Q6H PRN PRN Reason: NASAL CONGESTION Last Admin: 06/26/19 21:52 Dose: 3 ml ASSESSMENT AND PLAN: 58 F h/o ovarian ca w/ metastasis (s/p laparatomy and JUDI/BSO) on chemo daily with Lenvima Keytruda weekly, presenting with acute on chronic diarrhea, nausea vomiting and weakness. Patient endorses several weeks of nausea, vomiting and diarrhea but recently has become worse a/w weakness and malaise. Patient also complaining of throat pain, especially when swallowing making it difficult for her to eat. Denies h/o oral thrush, never got EGD. Flu swab positive for influenza A in ED. Plan: 1. Continue Tamiflu for influenza for 5 days GI symptoms improved 2. EKG shows nonspecific ST-T changes, normal serial cardiac enzyme no chest pain, no arrhythmia, normal echocardiogram, evaluated by cardiology recommended stress test when patient is cleared from influenza infection that can be performed as an outpatient.. Follow-up with cardiology as outpatient. 3. TSH suppressed and T4 is 140 mcg upper limit of normal will reduce dose of levothyroxine 100 mg of TSH after 3 weeks 4. Hypertension: Well-controlled we will switch to low-dose metoprolol XL 25 mg daily 5 reactive airway disease continue DuoNeb as needed
[2019-06-28] MEDS: PANTOPRAZOLE SODIUM 40 MG VIAL IVPUSH SCH (09:21)
[2019-06-28] MEDS: OSELTAMIVIR PHOSPHATE 75 MG CAPSULE PO SCH (09:21)
[2019-06-28] MEDS: amLODIPine BESYLATE 5 MG TABLET (FP) PO SCH (09:22)
[2019-06-28] MEDS: HYDROCHLOROTHIAZIDE 25 MG TABLET (FP) PO SCH (09:22)
[2019-06-28] MEDS: ASPIRIN COATED 81 MG TABLET.EC PO SCH (09:22)
[2019-06-28] MEDS ORDERED: metoPROLOL SUCCINATE 25 MG TAB.SR.24H (FP) PO SCH (10:00)
[2019-06-28 10:09] VITALS: BP 115/65; PULSE 88; TEMP 98.2
--- NOTE | 2019-06-28 12:39 | EKG ---
Test Reason : Blood Pressure : / mmHG Vent. Rate : 083 BPM Atrial Rate : 083 BPM P-R Int : 158 ms QRS Dur : 078 ms QT Int : 376 ms P-R-T Axes : 065 052 024 degrees QTc Int : 441 ms NORMAL SINUS RHYTHM POSSIBLE LEFT ATRIAL ENLARGEMENT BORDERLINE ECG WHEN COMPARED WITH ECG OF 26-JUN-2019 22:21, T WAVE INVERSION LESS EVIDENT IN INFERIOR LEADS T WAVE INVERSION NO LONGER EVIDENT IN LATERAL LEADS Confirmed by DAO OVALLE, SRIDEVI ([id number]) on 06/28/2019 12:38:57 PM Referred By: Confirmed By:SRIDEVI DC MD
== END 2019-06-28 10:50 | disposition home or self-care (01) | DRG 723 ==
LOC: JER 09:44 → JERBED 12:01 → J4W 22:43
PROVIDERS: ATTEND Internal Medicine
DX: J10.2 Influenza due to other identified influenza virus with gastrointestinal manifestations (principal); R19.7 Diarrhea, unspecified; R11.2 Nausea with vomiting, unspecified; T45.1X5D Adverse effect of antineoplastic and immunosuppressive drugs, subsequent encounter; K52.1 Toxic gastroenteritis and colitis; C56.9 Malignant neoplasm of unspecified ovary; I10 Essential (primary) hypertension; E03.9 Hypothyroidism, unspecified
CPT/HCPCS: 36415; 71045-TC-FY; 80053; 80061; 81003; 82550; 82803; 83690; 83721; 83735; 84100; 84439; 84443; 84481; 84484; 85025; 85610; 85730; 87086; 87186; 87804; 93005; 93010; 93306-TC; 94640; 99285-25; J1644; J7030

== ENCOUNTER 2019-07-07 11:47 | Inpatient (IN) | payer OTHER ==
[2019-07-07 11:58] VITALS: BMI 29.2
--- NOTE | 2019-07-07 12:55 | PDOC ---
History of Present Illness - General Chief Complaint: Rectal Bleed Stated Complaint: BLOOD IN STOOL Time Seen by Provider: 07/07/19 12:19 History Source: Patient Exam Limitations: No Limitations - History of Present Illness Initial Comments: 07/07/19 12:54 58y F with PMH Metastatic Ovarian Ca s/p JUDI/BSO in 2018 on chemotherapy (last session 5w ago, taking Keytruda), HTN, abdominal hernia presenting to ED for painless rectal bleeding. Pt noted blood in the toilet yesterday. The first bowel movement was loose so she saw blood in the bowl. The next BM was more formed and she noted maroon blood coating the stool. She also endorses a pressure in the lower abdomen. Denies n/v, lightheadedness, back pain, fevers, chills, headache, syncope. PMD: Monae PMH: see hpi PSH: see hpi Meds: see med rec allergies: nkda Past History - Past Medical History Allergies/Adverse Reactions: Allergies Allergy/AdvReac Type Severity Reaction Status Date / Time No Known Allergies Allergy Verified 07/07/19 11:49 Home Medications: Ambulatory Orders Albuterol Sulfate [Albuterol Sulfate Hfa] 18 gm IH PRN 06/26/19 Levothyroxine [Synthroid -] 100 mcg PO DAILY@0700 #30 tablet 06/28/19 Metoprolol Succinate [Toprol Xl] 25 mg PO DAILY #30 tab.er.24h 06/28/19 Hydrochlorothiazide 25 mg PO DAILY 07/07/19 Cancer: Yes (ovarian) COPD: No - Immunization History Td Vaccination: Yes TDAP Vaccination: Yes Immunization Up to Date: Yes - Psycho Social/Smoking Cessation Hx Smoking Status: Yes Smoking History: Unknown if ever smoked Have you smoked in the past 12 months: No Number of Cigarettes Smoked Daily: 2 Hx Alcohol Use: No Drug/Substance Use Hx: No Substance Use Type: None Hx Substance Use Treatment: No Review of Systems - Review of Systems Constitutional: No: Symptoms Reported HEENTM: No: Symptoms Reported Respiratory: No: Symptoms reported Cardiac (ROS): No: Symptoms Reported ABD/GI: Yes: See HPI : No: Symptoms Reported Musculoskeletal: No: Symptoms Reported Integumentary: No: Symptoms Reported Neurological: No: Symptoms reported *Physical Exam - Vital Signs Last Vital Signs Temp Pulse Resp BP Pulse Ox 98.1 F 75 18 102/63 99 07/07/19 11:53 07/07/19 11:53 07/07/19 11:53 07/07/19 11:53 07/07/19 11:53 - Physical Exam General Appearance: Yes: Appropriately Dressed, Obese. No: Apparent Distress HEENT: positive: EOMI, JOSEPHINE, Normal ENT Inspection. negative: Pale Conjunctivae Neck: positive: Trachea midline, Supple Respiratory/Chest: positive: Lungs Clear, Normal Breath Sounds. negative: Paradoxal Breathing, Crackles, Rales, Rhonchi, Stridor, Wheezing Cardiovascular: positive: Regular Rhythm, Regular Rate, S1, S2. negative: Edema , JVD, Murmur Gastrointestinal/Abdominal: positive: Normal Bowel Sounds, Soft, Hernia (LLQ, not strangulated or incarcerated). negative: Distended, Guarding, Rebound, Tenderness (LLQ) Rectal Exam: positive: normal rectal tone, heme positive stool, other (no gross blood). negative: melena, decreased tone, hemorrhoids Musculoskeletal: negative: CVA Tenderness Extremity: positive: Normal Capillary Refill. negative: Pedal Edema, Swelling, Calf Tenderness Integumentary: positive: Normal Color, Dry, Warm, Ecchymosis (on upper arm) Neurologic: positive: take away man II-XII NML intact, Fully Oriented, Alert, Normal Mood/ Affect, Normal Response, Motor Strength 5/5 ED Treatment Course - LABORATORY CBC & Chemistry Diagram: 07/07/19 17:30 07/07/19 13:16 Medical Decision Making - Medical Decision Making 07/07/19 13:38 58y F with ovarian ca presenting for rectal bleeding. vitals wnl ddx includes diverticulosis, hemorrhoid, fissure, ugib, malignancy/mets Called surgeons and spoke to Dr. Bergman (?) [phone] CT done 05/29- 4 lower abdominal wall hernias, s/p JUDI w/ BSO. no signs of mets or diverticulosis. otherwise unremarkable will talk to GI. -guaiac positive pending CBC, chem, ts. will rpt cbc 4h. pt seen here around 1week ago with h/h 14/40 and now it is 12.9/30s, has gone down. will trend. vitals are stable. pt ambulatory, not lightheaded, not pale GI recommends admission for serial cbc, will see patient. pt amenable to admission, will admit med/surg Discharge - Discharge Information Problems reviewed: Yes Clinical Impression/Diagnosis: Rectal bleed Condition: Stable - Follow up/Referral - Patient Discharge Instructions - Post Discharge Activity
[2019-07-07 13:27] LABS: BASO % 0.2 % (0-2.0); EOS % 4.4 % (0-4.5); HEMATOCRIT 39.1 % (32.4-45.2); HEMOGLOBIN 12.9 GM/dL (10.7-15.3); LYMPH % 30.1 % (8-40); MCH 29.4 pg (25.7-33.7); MCHC 32.9 g/dl (32.0-36.0); MEAN CELL VOLUME 89.2 fl (80-96); MEAN PLT VOLUME 8.8 fl (7.5-11.1); NEUT % 52.3 % (42.8-82.8); PH,URINE 6.5 (5.0-8.0); PLATELET COUNT 281 K/MM3 (134-434); RBC 4.39 M/mm3 (3.60-5.2); RDW 16.1 % (11.6-15.6); URINE APPEARANCE CLEAR; URINE BILIRUBIN NEGATIVE (NEGATIVE); URINE COLOR YELLOW; URINE GLUCOSE (UA) NEGATIVE (NEGATIVE); URINE KETONE NEGATIVE (NEGATIVE); URINE LEUK ESTERASE NEGATIVE (NEGATIVE); URINE NITRITE NEGATIVE (NEGATIVE); URINE PROTEIN NEGATIVE (NEGATIVE); URINE UROBILINOGEN 0.2 mg/dL (0.2-1.0); WHITE BLOOD COUNT 4.4 K/mm3 (4.0-10.0)
[2019-07-07 14:01] LABS: ALBUMIN 3.1 g/dl (3.4-5.0); BILIRUBIN,TOTAL 0.3 mg/dL (0.2-1); BLOOD UREA NITROGEN 17.4 mg/dL (7-18); CALCIUM 9.5 mg/dL (8.5-10.1); CREATININE 0.8 mg/dL (0.55-1.3); POTASSIUM 4.5 mmol/L (3.5-5.1); TOT PROT 6.8 g/dl (6.4-8.2)
--- NOTE | 2019-07-07 14:13 | PDOC ---
Documentation entered by Carter Esqueda SCRIBE, acting as scribe for Bola Flores MD. Bola Flores MD: This documentation has been prepared by the Dheeraj carrasquillo Daniel, SCRIBE, under my direction and personally reviewed by me in its entirety. I confirm that the documentation accurately reflects all work, treatment, procedures, and medical decision making performed by me. Attending Attestation - Resident Resident Name: Kassi Land - ED Attending Attestation I have performed the following: I have examined & evaluated the patient, The case was reviewed & discussed with the resident, I agree w/resident's findings & plan, Exceptions are as noted - HPI HPI: 07/07/19 12:53 The patient is a 58 year old female with a past medical history of stage 4 ovarian cancer s/p JUDI/BSO and HTN here today for evaluation of rectal bleeding since yesterday. - Physicial Exam PE: 07/07/19 14:10 Patient is awake and alert, well-nourished, in no significant distress Normocephalic and atraumatic PERRLA, EOMI, conjunctiva pink mmm Neck is supple, no JVD CTA RRR Abdomen soft, nontender, nondistended transferred text - Medical Decision Making 07/07/19 14:11 58-year-old female with history of ovarian CA, status post JUDI/BSO in 2018, 5 weeks post termination of chemotherapy presents with painless rectal bleeding. i suspect dverticulosis. In the ER, patient is awake and alert, vital signs are noted. initial CBC reveals hemoglobin of 12.5. Patients surgeon at [facility] contacted and endorses history of a CT of abdomen pelvis from April 2019 which revealed no evidence of recurrent cancer. Hernias were noted. Will consult GI. Will obtain 4-hour hemoglobin/ hematocrit and if stable will discharge home with rectal bleeding instructions and outpatient follow-up. If repeat CBC reveals drop in hemoglobin/ hematocrit, will consider admission for inpatient colonoscopy.
--- NOTE | 2019-07-07 16:48 | CON.GI ---
Consult Consult Specialty:: GI coverage for Dr Jacome - History of Present Illness History of Present Illness: 58y F with PMH Metastatic Ovarian Ca s/p JUDI/BSO in 2018 on chemotherapy (last session 5w ago, taking Keytruda), HTN, abdominal hernia presenting to ED for painless rectal bleeding. Pt noted blood in the toilet yesterday. The first bowel movement was loose so she saw blood in the bowl. The next BM was more formed and she noted maroon blood coating the stool. She also endorses a pressure in the lower abdomen. Denies n/v, lightheadedness, back pain, fevers, chills, headache, syncope. She had colos copy 1 year ago at [facility]. She schedule to have abdominal hernia repairs. - Past Medical History Cardio/Vascular: Yes: HTN Endocrine: Yes: Hypothyroidism - Alcohol/Substance Use Hx Alcohol Use: No - Smoking History Smoking history: Unknown if ever smoked Have you smoked in the past 12 months: No Aproximately how many cigarettes per day: 2 Home Medications - Allergies Allergies/Adverse Reactions: Allergies Allergy/AdvReac Type Severity Reaction Status Date / Time No Known Allergies Allergy Verified 07/07/19 11:49 - Home Medications Home Medications: Ambulatory Orders Albuterol Sulfate [Albuterol Sulfate Hfa] 18 gm IH PRN 06/26/19 Levothyroxine [Synthroid -] 100 mcg PO DAILY@0700 #30 tablet 06/28/19 Metoprolol Succinate [Toprol Xl] 25 mg PO DAILY #30 tab.er.24h 06/28/19 Hydrochlorothiazide 25 mg PO DAILY 07/07/19 Physical Exam-GI Vital Signs: Vital Signs Temperature 98.1 F 07/07/19 11:53 Pulse Rate 75 07/07/19 11:53 Respiratory Rate 18 07/07/19 11:53 Blood Pressure 102/63 07/07/19 11:53 O2 Sat by Pulse Oximetry (%) 99 07/07/19 11:53 Constitutional: Yes: Well Nourished Eyes: Yes: Conjunctiva Clear, Occular Prosthesis Neck: Yes: Supple Cardiovascular: Yes: Regular Rate and Rhythm Respiratory: Yes: CTA Bilaterally ...Palpate: Yes: Soft. No: Firm/Rigid, Guarding, Hepatomegaly, Mass, Pulsatile Mass, Splenomegaly, Tenderness Labs: CBC, BMP 07/07/19 13:00 02/08/20 13:16 Home Medications Medication Instructions Recorded Albuterol Sulfate [Albuterol 18 gm IH PRN 06/26/19 Sulfate Hfa] Levothyroxine [Synthroid -] 100 mcg PO DAILY@0700 #30 tablet 06/28/19 Metoprolol Succinate [Toprol Xl] 25 mg PO DAILY #30 tab.er.24h 06/28/19 Hydrochlorothiazide 25 mg PO DAILY 07/07/19 Problem List - Problems (1) Rectal bleeding Assessment/Plan: etiology unclear R>advance diet cbc , if no bleeding overnight she may be discharged and follow up with her private GI Code(s): K62.5 - HEMORRHAGE OF ANUS AND RECTUM
[2019-07-07] MEDS: DEXTROSE 5%-NORMAL SALINE 1,000 ML IV SCH (17:45)
[2019-07-07 17:52] LABS: BASO % 0.6 % (0-2.0); EOS % 3.8 % (0-4.5); HEMOGLOBIN 12.2 GM/dL (10.7-15.3); MCH 29.1 pg (25.7-33.7); MCHC 33.1 g/dl (32.0-36.0); MEAN CELL VOLUME 87.9 fl (80-96); MONO % 11.9 % (3.8-10.2); NEUT % 51.7 % (42.8-82.8); PLATELET COUNT 295 K/MM3 (134-434); RBC 4.21 M/mm3 (3.60-5.2); RDW 15.7 % (11.6-15.6); WHITE BLOOD COUNT 5.1 K/mm3 (4.0-10.0)
[2019-07-07 18:04] LABS: INR 0.96 (0.83-1.09); PROTHROMBIN TIME (PATIENT) 11.3 SEC (9.7-13.0)
--- NOTE | 2019-07-07 18:13 | HP ---
<Sultana Robison - Last Filed: 07/07/19 18:43> CHIEF COMPLAINT:Rectal bleed mixed with the stool medical in color Seen and examined. Please see resident note for further historical information. I personally verified all the arizmendi historical formation and exam findings. Personally in pretted imaging and diagnostics and reviewed appropriate results. I reviewed all labs and vital signs are per the resident note and EMR as documented. I agree with the above assessment and plan unless supplemented by myself and the following. PCP: HISTORY OF PRESENT ILLNESS: ER course was notable for: (1) (2) (3) Recent Travel: PAST MEDICAL HISTORY: PAST SURGICAL HISTORY: Social History: Smoking: Alcohol: Drugs: Allergies No Known Allergies Allergy (Verified 07/07/19 11:49) HOME MEDICATIONS: Home Medications Medication Instructions Recorded Albuterol Sulfate [Albuterol 18 gm IH PRN 06/26/19 Sulfate Hfa] Levothyroxine [Synthroid -] 100 mcg PO DAILY@0700 #30 tablet 06/28/19 Metoprolol Succinate [Toprol Xl] 25 mg PO DAILY #30 tab.er.24h 06/28/19 Hydrochlorothiazide 25 mg PO DAILY 07/07/19 REVIEW OF SYSTEMS CONSTITUTIONAL: Absent: fever, chills, diaphoresis, generalized weakness, malaise, loss of appetite, weight change HEENT: Absent: rhinorrhea, nasal congestion, throat pain, throat swelling, difficulty swallowing, mouth swelling, ear pain, eye pain, visual changes CARDIOVASCULAR: Absent: chest pain, syncope, palpitations, irregular heart rate, lightheadedness , peripheral edema RESPIRATORY: Absent: cough, shortness of breath, dyspnea with exertion, orthopnea, wheezing, stridor, hemoptysis GASTROINTESTINAL: Absent: abdominal pain, abdominal distension, nausea, vomiting, diarrhea, constipation, melena, hematochezia GENITOURINARY: Absent: dysuria, frequency, urgency, hesitancy, hematuria, flank pain, genital pain MUSCULOSKELETAL: Absent: myalgia, arthralgia, joint swelling, back pain, neck pain SKIN: Absent: rash, itching, pallor HEMATOLOGIC/IMMUNOLOGIC: Absent: easy bleeding, easy bruising, lymphadenopathy, frequent infections ENDOCRINE: Absent: unexplained weight gain, unexplained weight loss, heat intolerance, cold intolerance NEUROLOGIC: Absent: headache, focal weakness or paresthesias, dizziness, unsteady gait, seizure, mental status changes, bladder or bowel incontinence PSYCHIATRIC: Absent: anxiety, depression, suicidal or homicidal ideation, hallucinations. PHYSICAL EXAMINATION Vital Signs - 24 hr 07/07/19 07/07/19 11:53 17:25 Temperature 98.1 F 98.3 F Pulse Rate 75 Pulse Rate [ 72 Right Radial] Respiratory 18 16 Rate Blood Pressure 102/63 Blood Pressure 122/73 [Left Arm] O2 Sat by Pulse 99 100 Oximetry (%) Patient is comfortable HEENT normal Neck supple no JVD Lungs clear no wheezing Abdomen nontender no organomegaly bowel sounds normal Extremities no edema no cyanosis normal pulses Neurologically he is alert awake oriented, nonfocal Skin no rash noted Plan She refused rectal examinationLower GI bleeding possibly due to hemorrhoids Unlikely she has diverticular bleed unlikely she has upper GI bleed since she taking lots of Motrin lately will give her Protonix p.o. and will watch CBC in the morning if he is stabilized go home follow-up with GI. She had normal colonoscopy done last year. ATTENDING PHYSICIAN STATEMENT I saw and evaluated the patient. I reviewed the resident's note and discussed the case with the resident. I agree with the resident's findings and plan as documented. SUBJECTIVE: OBJECTIVE: ASSESSMENT AND PLAN: <Francisco J Quesada - Last Filed: 07/07/19 23:17> CHIEF COMPLAINT: bloody BM PCP: Andree HISTORY OF PRESENT ILLNESS: 58F w/ pmh of HTN, hypothyroidism, Ovarian Ca(s/p [id number], Lenvima, Keytruda), chemotherapy-related colitis, recent hospitalization(06/26/19 - ) for Influenza B(completed course), presenting to [facility]ED for complaint of rectal bleeding x2d. Endorses maroon-colored bloody stools x4 episodes with dark blood on wiping. Discussed first episode with her Hernia Surgeon(Dr Barrientos) who reassured her. Grew concerned after her 4th episode of maroon-colored stools. Has been taking Alleve gel tablets(3capsules daily x2 weeks). Last keytruda was ~4weeks prior. Has been holding Lenvima d/t recen Influenza B. Denies chronic constipation, straining w/ defecation. Eats fruits(strawberries) daily, drinks multiple bottles of water. Has not been eating Beets. Last colonoscopy was 2019, and believes that there were no notable findings. ER course was notable for: (1) D5NS @125 (2) EKG: NSR, possible Left atrial enlargemen; QTc 395 (3) Rectal Exam: no blood on glove, no palpable hemorrhoids (4) FOBT(+) Recent Travel: none PAST MEDICAL HISTORY: HTN, hypothyroidism, Ovarian Ca(s/p [id number], Lenvima, Keytruda), chemotherapy-related colitis PAST SURGICAL HISTORY: Ovarian Ca(s/p [id number]) (30ys prior) Social History: Smoking: distant loose cigarette usage Alcohol: social, hasn't drank in 4ys Drugs: teenage MJ Allergies No Known Allergies Allergy (Verified 07/07/19 11:49) HOME MEDICATIONS: Home Medications Medication Instructions Recorded Albuterol Sulfate [Albuterol 18 gm IH PRN 06/26/19 Sulfate Hfa] Levothyroxine [Synthroid -] 100 mcg PO DAILY@0700 #30 tablet 06/28/19 Metoprolol Succinate [Toprol Xl] 25 mg PO DAILY #30 tab.er.24h 06/28/19 Hydrochlorothiazide 25 mg PO DAILY 07/07/19 REVIEW OF SYSTEMS CONSTITUTIONAL: lost 19lbs in 3mo Absent: fever, chills, diaphoresis, generalized weakness, malaise HEENT: Absent: rhinorrhea, nasal congestion, throat pain, throat swelling, difficulty swallowing, mouth swelling, ear pain, eye pain, visual changes CARDIOVASCULAR: Absent: chest pain, syncope, palpitations, irregular heart rate, lightheadedness , peripheral edema RESPIRATORY: mild nonproductive cough Absent: shortness of breath, dyspnea with exertion, orthopnea, wheezing, stridor , hemoptysis GASTROINTESTINAL: mild chronic intermittent paraincisional hernia pain, stool with maroon-colored stool Absent: abdominal distension, nausea, vomiting, diarrhea, constipation, melena, GENITOURINARY: Absent: dysuria, frequency, urgency, hesitancy, hematuria, flank pain, genital pain MUSCULOSKELETAL: Absent: myalgia, arthralgia, joint swelling, back pain, neck pain SKIN: Absent: rash, itching, pallor HEMATOLOGIC/IMMUNOLOGIC: Absent: easy bleeding, easy bruising, lymphadenopathy, frequent infections ENDOCRINE: Absent: unexplained weight gain,heat intolerance, cold intolerance NEUROLOGIC: Absent: headache, focal weakness or paresthesias, dizziness, unsteady gait, seizure, mental status changes, bladder or bowel incontinence PSYCHIATRIC: Absent: anxiety, depression, suicidal or homicidal ideation, hallucinations. PHYSICAL EXAMINATION Vital Signs - 24 hr 07/07/19 07/07/19 11:53 17:25 Temperature 98.1 F 98.3 F Pulse Rate 75 Pulse Rate [ 72 Right Radial] Respiratory 18 16 Rate Blood Pressure 102/63 Blood Pressure 122/73 [Left Arm] O2 Sat by Pulse 99 100 Oximetry (%) GENERAL: Awake, alert, and fully oriented, in no acute distress. HEAD: NC/AT EYES: EOMI, sclera anicteric, no conjunctiva pallor. EARS, NOSE, THROAT: Ears normal, nares patent, oropharynx clear without exudates. Moist mucous membranes. NECK: Normal range of motion, supple without lymphadenopathy, JVD, or masses. LUNGS: Breath sounds equal, clear to auscultation bilaterally. No wheezes, and no crackles. No accessory muscle use. Breathing comfortably on RA HEART: Regular rate and rhythm, normal S1 and S2 without murmur, rub or gallop. ABDOMEN: Obese, soft, normoactive bowel sounds, mild TTP of lower Right paraincisional region, mass w/ vasalva, no guarding, no rebound, no masses. RECTAL: patient refused as she had one performed by an ED resident(Shanda, who reported no thad blood in stool; no palpable hemorrhoids) MUSCULOSKELETAL: Normal range of motion at all joints. No bony deformities or tenderness. No CVA tenderness. UPPER EXTREMITIES: 2+ pulses, warm, well-perfused. No cyanosis. No clubbing. No peripheral edema. LOWER EXTREMITIES: 2+ pulses, warm, well-perfused. No calf tenderness. No peripheral edema. NEUROLOGICAL: Cranial nerves II-XII intact. Normal speech. PSYCHIATRIC: Cooperative. Good eye contact. Appropriate mood and affect. SKIN: Warm, dry, normal turgor, no rashes or lesions noted, normal capillary refill. Laboratory Results - last 24 hr 07/07/19 07/07/19 07/07/19 13:00 13:00 13:02 WBC 4.4 RBC 4.39 Hgb 12.9 Hct 39.1 MCV 89.2 MCH 29.4 MCHC 32.9 RDW 16.1 H Plt Count 281 D MPV 8.8 D Absolute Neuts (auto) 2.3 Neutrophils % 52.3 Lymphocytes % 30.1 D Monocytes % 13.0 H Eosinophils % 4.4 D Basophils % 0.2 Nucleated RBC % 0 PT with INR INR Sodium Potassium Chloride Carbon Dioxide Anion Gap BUN Creatinine Est GFR (CKD-EPI)AfAm Est GFR (CKD-EPI)NonAf Random Glucose Calcium Total Bilirubin AST ALT Alkaline Phosphatase Total Protein Albumin Urine Color Yellow Urine Appearance Clear Urine pH 6.5 D Ur Specific [place] 1.019 Urine Protein Negative Urine Glucose (UA) Negative Urine Ketones Negative Urine Blood Negative Urine Nitrite Negative Urine Bilirubin Negative Urine Urobilinogen 0.2 Ur Leukocyte Esterase Negative Stool Occult Blood Positive 07/07/19 07/07/19 07/07/19 13:16 17:30 17:30 WBC 5.1 RBC 4.21 Hgb 12.2 Hct 37.0 MCV 87.9 MCH 29.1 MCHC 33.1 RDW 15.7 H Plt Count 295 MPV 9.0 Absolute Neuts (auto) 2.6 Neutrophils % 51.7 Lymphocytes % 32.0 Monocytes % 11.9 H Eosinophils % 3.8 Basophils % 0.6 Nucleated RBC % 0 PT with INR 11.30 INR 0.96 Sodium 138 Potassium 4.5 Chloride 103 Carbon Dioxide 30 Anion Gap 5 L BUN 17.4 Creatinine 0.8 Est GFR (CKD-EPI)AfAm 94.85 Est GFR (CKD-EPI)NonAf 81.84 Random Glucose 97 Calcium 9.5 Total Bilirubin 0.3 AST 11 L ALT 16 Alkaline Phosphatase 56 Total Protein 6.8 Albumin 3.1 L Urine Color Urine Appearance Urine pH Ur Specific [place] Urine Protein Urine Glucose (UA) Urine Ketones Urine Blood Urine Nitrite Urine Bilirubin Urine Urobilinogen Ur Leukocyte Esterase Stool Occult Blood ASSESSMENT/PLAN: 58F w/ pmh of HTN, hypothyroidism, Ovarian Ca(s/p [id number], Lenvima, Keytruda), chemotherapy-related colitis, recent hospitalization(06/26/19 - ) for Influenza B(completed course), presenting to [facility]-ED for complaint of rectal bleeding x2d which is likely hemorrhoids. Admitted for rectal bleed. # rectal bleeding --likely 2/2 internal hemorrhoids, probably self-limiting - HD stable(nontachy, normotensive) > H/H: 12.9/29.1 > FOBT (+) - GI(Lantin) consult --rec admission for monitoring H/H - check morning H/H - pantoprazole 40mg QD --for h/o recent NSAID usage # hypothyroidism - home levothyroxine # chronic HTN - cw home meds but beware pt is currently normotensive and BB might mask symptoms of anemia FEN - regular diet DVT PPX - no chemical ppx for now --at risk of continued bleeding - SCD b/l Dispo: - MedSurg Family Medical History Family Hx Cancer: Mother (breast Ca, 51y/o) Family Hx Respiratory Disorders: Father (emphysema) Visit type - Emergency Visit Emergency Visit: Yes ED Registration Date: 07/07/19 Care time: The patient presented to the Emergency Department on the above date and was hospitalized for further evaluation of their emergent condition. - New Patient This patient is new to me today: Yes Date on this admission: 07/07/19 - Critical Care Critical Care patient: No ATTENDING PHYSICIAN STATEMENT I saw and evaluated the patient. I reviewed the resident's note and discussed the case with the resident. I agree with the resident's findings and plan as documented. SUBJECTIVE: OBJECTIVE: ASSESSMENT AND PLAN:
[2019-07-07] MEDS ORDERED: ALBUTEROL SO4 HFA INHALER IH PRN (18:45)
[2019-07-08] MEDS: DEXTROSE 5%-NORMAL SALINE 1,000 ML IV SCH (06:04)
[2019-07-08] MEDS ORDERED: LEVOTHYROXINE NA 100 MCG TABLET (FP) PO SCH (07:00)
[2019-07-08 08:51] LABS: BLOOD UREA NITROGEN 9.7 mg/dL (7-18); CALCIUM 8.8 mg/dL (8.5-10.1); CREATININE 0.7 mg/dL (0.55-1.3); MAGNESIUM 1.7 mg/dL (1.8-2.4); PHOSPHOROUS 4.4 mg/dL (2.5-4.9)
[2019-07-08 09:00] LABS: BASO % 0.2 % (0-2.0); EOS % 5.1 % (0-4.5); HEMATOCRIT 34.6 % (32.4-45.2); HEMOGLOBIN 11.4 GM/dL (10.7-15.3); LYMPH % 34.3 % (8-40); MCH 29.1 pg (25.7-33.7); MEAN CELL VOLUME 88.2 fl (80-96); MEAN PLT VOLUME 8.7 fl (7.5-11.1); MONO % 13.2 % (3.8-10.2); NEUT % 47.2 % (42.8-82.8); PLATELET COUNT 235 K/MM3 (134-434); RBC 3.93 M/mm3 (3.60-5.2); WHITE BLOOD COUNT 3.3 K/mm3 (4.0-10.0)
[2019-07-08 09:49] VITALS: TEMP 98.3
[2019-07-08] MEDS ORDERED: PANTOPRAZOLE 20 MG TABLET PO SCH ×2 (10:00)
[2019-07-08] MEDS ORDERED: metoPROLOL SUCCINATE 25 MG TAB.SR.24H (FP) PO SCH (10:00)
[2019-07-08] MEDS ORDERED: HYDROCHLOROTHIAZIDE 25 MG TABLET (FP) PO SCH (10:00)
--- NOTE | 2019-07-08 10:05 | DS ---
Physical Exam: SUBJECTIVE: Patient seen and examined She has no complaints today. She has not bled since she come to the hospital. She ate well no abdominal pain no diarrhea no other complaints. OBJECTIVE: Vital Signs Period Temp Pulse Resp BP Sys/Bush Pulse Ox Last 24 Hr 98.1 F-99.5 F 67-75 16-20 98-125/54-73 99-100 PHYSICAL EXAM GENERAL: The patient is awake, alert, and fully oriented, in no acute distress. HEAD: Normal with no signs of trauma. EYES: PERRL, extraocular movements intact, sclera anicteric, conjunctiva clear. ENT: Ears normal, nares patent, oropharynx clear without exudates, moist mucous membranes. NECK: Trachea midline, full range of motion, supple. LUNGS: Breath sounds equal, clear to auscultation bilaterally, no wheezes, no crackles, no accessory muscle use. HEART: Regular rate and rhythm, S1, S2 without murmur, rub or gallop. ABDOMEN: Soft, nontender, nondistended, normoactive bowel sounds, no guarding, no rebound, no hepatosplenomegaly, no masses. EXTREMITIES: 2+ pulses, warm, well-perfused, no edema. NEUROLOGICAL: Cranial nerves II through XII grossly intact. Normal speech, gait not observed. PSYCH: Normal mood, normal affect. SKIN: Warm, dry, normal turgor, no rashes or lesions noted. LABS Laboratory Results - last 24 hr 07/07/19 07/07/19 07/07/19 13:00 13:00 13:02 WBC 4.4 RBC 4.39 Hgb 12.9 Hct 39.1 MCV 89.2 MCH 29.4 MCHC 32.9 RDW 16.1 H Plt Count 281 D MPV 8.8 D Absolute Neuts (auto) 2.3 Neutrophils % 52.3 Lymphocytes % 30.1 D Monocytes % 13.0 H Eosinophils % 4.4 D Basophils % 0.2 Nucleated RBC % 0 PT with INR INR Sodium Potassium Chloride Carbon Dioxide Anion Gap BUN Creatinine Est GFR (CKD-EPI)AfAm Est GFR (CKD-EPI)NonAf Random Glucose Calcium Phosphorus Magnesium Total Bilirubin AST ALT Alkaline Phosphatase Total Protein Albumin Urine Color Yellow Urine Appearance Clear Urine pH 6.5 D Ur Specific [place] 1.019 Urine Protein Negative Urine Glucose (UA) Negative Urine Ketones Negative Urine Blood Negative Urine Nitrite Negative Urine Bilirubin Negative Urine Urobilinogen 0.2 Ur Leukocyte Esterase Negative Stool Occult Blood Positive Blood Type Antibody Screen 07/07/19 07/07/19 07/07/19 13:16 17:30 17:30 WBC RBC Hgb Hct MCV MCH MCHC RDW Plt Count MPV Absolute Neuts (auto) Neutrophils % Lymphocytes % Monocytes % Eosinophils % Basophils % Nucleated RBC % PT with INR 11.30 INR 0.96 Sodium 138 Potassium 4.5 Chloride 103 Carbon Dioxide 30 Anion Gap 5 L BUN 17.4 Creatinine 0.8 Est GFR (CKD-EPI)AfAm 94.85 Est GFR (CKD-EPI)NonAf 81.84 Random Glucose 97 Calcium 9.5 Phosphorus Magnesium Total Bilirubin 0.3 AST 11 L ALT 16 Alkaline Phosphatase 56 Total Protein 6.8 Albumin 3.1 L Urine Color Urine Appearance Urine pH Ur Specific [place] Urine Protein Urine Glucose (UA) Urine Ketones Urine Blood Urine Nitrite Urine Bilirubin Urine Urobilinogen Ur Leukocyte Esterase Stool Occult Blood Blood Type A POSITIVE Antibody Screen Negative 07/07/19 07/08/19 07/08/19 17:30 07:12 07:23 WBC 5.1 3.3 L RBC 4.21 3.93 Hgb 12.2 11.4 Hct 37.0 34.6 MCV 87.9 88.2 MCH 29.1 29.1 MCHC 33.1 33.0 RDW 15.7 H 16.0 H Plt Count 295 235 D MPV 9.0 8.7 Absolute Neuts (auto) 2.6 1.6 Neutrophils % 51.7 47.2 Lymphocytes % 32.0 34.3 Monocytes % 11.9 H 13.2 H Eosinophils % 3.8 5.1 H Basophils % 0.6 0.2 Nucleated RBC % 0 0 PT with INR INR Sodium 140 Potassium 4.0 Chloride 104 Carbon Dioxide 29 Anion Gap 7 L BUN 9.7 Creatinine 0.7 Est GFR (CKD-EPI)AfAm 111.47 Est GFR (CKD-EPI)NonAf 96.18 Random Glucose 118 H Calcium 8.8 Phosphorus 4.4 Magnesium 1.7 L Total Bilirubin AST ALT Alkaline Phosphatase Total Protein Albumin Urine Color Urine Appearance Urine pH Ur Specific [place] Urine Protein Urine Glucose (UA) Urine Ketones Urine Blood Urine Nitrite Urine Bilirubin Urine Urobilinogen Ur Leukocyte Esterase Stool Occult Blood Blood Type Antibody Screen HOSPITAL COURSE:She was admitted to the hospital rectal bleed which were maroon color for last 2 days. In the hospital her hemoglobin was stable she came with 12 point 4 repeat came down to 12 and today is 11.4. She has no active bleeding her current hemoglobin level is still normal range. Advised patient to see her primary care doctor next week and also GI doctor who did a colonoscopy last year. She is taking Motrin in the home for pain advised her to take only Tylenol at this time also will give her Protonix 40 mg p.o. for next 2 weeks. She will resume her medication from the home new medication is going to Protonix 40 mg once a day. She will follow-up with oncologist and primary care doctor next week. Date of Admission:07/07/19 Date of Discharge: 07/08/19 Minutes to complete discharge: 30 Discharge Summary Problems reviewed: Yes Reason For Visit: GASTROINTESTINAL HEMORRHAGE Current Active Problems Rectal bleeding (Acute) Condition: Stable - Instructions Referrals: Karlo Licona MD [Primary Care Provider] - - Home Medications Comprehensive Discharge Medication List: Ambulatory Orders Albuterol Sulfate [Albuterol Sulfate Hfa] 18 gm IH PRN 06/26/19 Levothyroxine [Synthroid -] 100 mcg PO DAILY@0700 #30 tablet 06/28/19 Metoprolol Succinate [Toprol Xl] 25 mg PO DAILY #30 tab.er.24h 06/28/19 Hydrochlorothiazide 25 mg PO DAILY 07/07/19 This patient is new to me today: Yes Date on this admission: 07/08/19 Emergency Visit: Yes ED Registration Date: 07/07/19 Care time: The patient presented to the Emergency Department on the above date and was hospitalized for further evaluation of their emergent condition. Critical Care patient: No - Discharge Referral [facility]erred [facility] Med P.C.: No
[2019-07-08 11:19] VITALS: BP 108/69; PULSE 73
--- NOTE | 2019-07-08 14:15 | EKG ---
Test Reason : Blood Pressure : / mmHG Vent. Rate : 071 BPM Atrial Rate : 071 BPM P-R Int : 166 ms QRS Dur : 080 ms QT Int : 364 ms P-R-T Axes : 068 063 048 degrees QTc Int : 395 ms NORMAL SINUS RHYTHM POSSIBLE LEFT ATRIAL ENLARGEMENT BORDERLINE ECG Confirmed by MD VENKAT, CLEM ([id number]) on 07/08/2019 2:15:02 PM Referred By: Confirmed By:CLEM ROBLEDO MD
== END 2019-07-08 11:43 | disposition home or self-care (01) | DRG 253 ==
LOC: JER 11:47 → JERBED 14:20 → OBSVTOIN 18:46 → J5S 20:26
PROVIDERS: ADMIT Internal Medicine; ATTEND Internal Medicine
DX: K62.5 Hemorrhage of anus and rectum (principal); I10 Essential (primary) hypertension; E03.9 Hypothyroidism, unspecified; K46.9 Unspecified abdominal hernia without obstruction or gangrene; K57.90 Diverticulosis of intestine, part unspecified, without perforation or abscess without bleeding; K64.9 Unspecified hemorrhoids; Z87.891 Personal history of nicotine dependence; Z85.43 Personal history of malignant neoplasm of ovary; Z90.722 Acquired absence of ovaries, bilateral
CPT/HCPCS: 36415; 71045-TC-FY; 80048; 80053; 81003; 82272; 83735; 84100; 85025; 85610; 86850; 86900; 86901; 87086; 93005; 93010; 99285-25; G0378

== ENCOUNTER 2019-07-20 08:29 | Emergency (ER) | payer OTHER ==
[2019-07-20 08:52] VITALS: BP 131/82; PULSE 69; TEMP 97.9; BMI 32.9
--- NOTE | 2019-07-20 09:13 | PDOC ---
History of Present Illness - General History Source: Patient Exam Limitations: No Limitations - History of Present Illness Initial Comments: 07/20/19 09:08 Patient is a 58-year-old female with stage IV ovarian cancer who presents to the ED with complaint of left hand swelling that she noticed yesterday. She denies any known injury to the hand. She states she noticed a small amount of inflammation proximal to the left second and third MCPs. She states the area does not hurt. She denies any numbness or tingling. She spoke with her primary doctor who advised she get seen by her oncologist for evaluation. <Essence Ash - Last Filed: 07/20/19 09:14> <Patrick Hernandez - Last Filed: 07/21/19 10:36> - General Chief Complaint: Injury Stated Complaint: LT. HAND BLOOD CLOT Time Seen by Provider: 07/20/19 08:59 Past History - Past Medical History Cancer: Yes (ovarian) COPD: No GI Disorders: Yes (ABDOMINAL HERNIA) HTN: Yes - Immunization History Td Vaccination: Yes TDAP Vaccination: Yes Immunization Up to Date: Yes - Psycho Social/Smoking Cessation Hx Smoking Status: Yes Smoking History: Former smoker Have you smoked in the past 12 months: No Number of Cigarettes Smoked Daily: 2 Information on smoking cessation initiated: No Hx Alcohol Use: No Drug/Substance Use Hx: No Substance Use Type: None Hx Substance Use Treatment: No <Essence Ash - Last Filed: 07/20/19 09:14> <Patrick Hernandez - Last Filed: 07/21/19 10:36> - Past Medical History Allergies/Adverse Reactions: Allergies Allergy/AdvReac Type Severity Reaction Status Date / Time No Known Allergies Allergy Verified 07/20/19 08:48 Home Medications: Ambulatory Orders Metoprolol Succinate [Toprol Xl] 25 mg PO DAILY #30 tab.er.24h 06/28/19 Hydrochlorothiazide 25 mg PO DAILY 07/07/19 Levothyroxine [Synthroid -] 100 mcg PO DAILY@0700 tablet 07/08/19 Pantoprazole Sodium [Protonix] 40 mg PO DAILY #30 tablet. 07/08/19 Review of Systems - Review of Systems Comments:: 07/20/19 09:09 - Review of Systems Able to Perform ROS?: Yes Constitutional: No: Fever, Chills, Loss of Appetite, Night Sweats, Weakness HEENTM: No: Eye Pain, Vision changes, Ear Pain, Throat Pain, Throat Swelling, Mouth Pain, Difficulty Swallowing Respiratory: No: Cough, Shortness of Breath, Wheezing, Sputum Production Cardiac (ROS): No: Chest Pain, Chest Tightness, Palpitations, Irregular Heart Beat, Edema ABD/GI: No: Nausea, Vomiting, Abdominal Pain, Diarrhea : No Dysuria, No Hematuria, No Frequency, No Urgency, No Vaginal Discharge/ Pain, No Penile Discharge/Pain Musculoskeletal: No: Muscle Pain, Back Pain, Joint Pain, Muscle Weakness, Neck Pain; Left hand swelling Integumentary: No: Lesions, Rash Neurological: No: Headache, Numbness, Tingling, Weakness, Speech Difficulties <Essence Ash D - Last Filed: 07/20/19 09:14> *Physical Exam - Vital Signs Last Vital Signs Temp Pulse Resp BP Pulse Ox 97.9 F 69 18 131/82 95 07/20/19 08:49 07/20/19 08:49 07/20/19 08:49 07/20/19 08:49 07/20/19 08:49 - Physical Exam 07/20/19 09:11 - Physical Exam General Appearance: Nourished, Appropriately Dressed, No Distress Neck: Supple, No Lymphadenopathy (R), No Lymphadenopathy (L), No Rigidity, No Decreased range of motion Respiratory/Chest: Lungs Clear, Normal Breath Sounds. No Respiratory Distress, No Accessory Muscle Use Cardiovascular: Regular Rhythm, Regular Rate, S1, S2 Gastrointestinal/Abdominal: Normal Bowel Sounds, Soft. Non-tender, No Guarding , No Rebound, No Rigidity Musculoskeletal: Normal Inspection. No Decreased Range of Motion; left hand with minimal swelling appreciated proximal to the second and third MCP. There is no tenderness to palpation and there is no fluctuance. There is no warmth to touch. There is no ecchymosis appreciated. Full range of motion of all fingers at the MCPs, PIPs and DIPs. Extremity: Normal Capillary Refill, Normal Inspection Integumentary: Normal Color, Dry. No Rash Neurologic: resort house[employer] II-XII NML intact, Fully Oriented, Alert, Normal Mood/Affect, Normal Response <Essence Ash D - Last Filed: 07/20/19 09:14> - Vital Signs Last Vital Signs Temp Pulse Resp BP Pulse Ox 97.9 F 69 18 131/82 95 07/20/19 08:49 07/20/19 08:49 07/20/19 08:49 07/20/19 08:49 07/20/19 08:49 <Patrick Hernandez - Last Filed: 07/21/19 10:36> Medical Decision Making - Medical Decision Making 07/20/19 09:12 Assessment: Patient is a 58-year-old female with a left hand swelling. Plan: I made the patient aware that secondary to her not having any pain, an x-ray will likely be very low yield. I do not believe that the patient has a blood clot, which she was initially concerned about secondary to her having no pain in the area appearing more like inflammation. I made the patient aware that she should ice her hand to help with the swelling. She can follow-up with her primary doctor within 1 to 2 days for repeat evaluation. She understands and agrees with this treatment plan and the patient stable for discharge. <Essence Ash - Last Filed: 07/20/19 09:14> Discharge - Discharge Information Problems reviewed: Yes <Essence Ash - Last Filed: 07/20/19 09:14> <Patrick Hernandez - Last Filed: 07/21/19 10:36> - Discharge Information Clinical Impression/Diagnosis: Localized swelling on left hand Condition: Stable Disposition: HOME - Follow up/Referral Referrals: Karlo Licona MD [Primary Care Provider] - - Patient Discharge Instructions Patient Printed Discharge Instructions: DI for Hand Injury Additional Instructions: Although you do not have any known injury, you do have some swelling to your left hand. Apply ice to your hand to help with the swelling. Follow-up with your primary doctor within 1 to 2 days for repeat evaluation.
== END 2019-07-20 09:22 | disposition home or self-care (01) ==
LOC: JER 08:29
DX: R22.32 Localized swelling, mass and lump, left upper limb (principal); C56.9 Malignant neoplasm of unspecified ovary; I10 Essential (primary) hypertension; Z87.891 Personal history of nicotine dependence
CPT/HCPCS: 99282-25